=== PATIENT | male | born 1945 | race Caucasian/White ===

== ENCOUNTER → 2017-06-05 | Outpatient (CLI) | payer OTHER ==
[~2017-06-05] MED LIST: AMLODIPINE BESYL5 M1 PO; ATORVASTATIN CA40 MG PO; CARDURA1 MG PO; FLOMAX0.4 MG PO; HYDROCODON-ACE1 EAC7 PO; IBUPROFEN 200200 M1 PO; LISINOPRIL20 MG PO; LOPRESSOR25 PO; PACERONE 200 M200 M1 PO
== END ==
LOC: RAD 07:01
DX: J90 Pleural effusion, not elsewhere classified (principal); J98.11 Atelectasis; Z95.1 Presence of aortocoronary bypass graft

== ENCOUNTER → 2017-06-07 | Outpatient (CLI) | payer OTHER ==
--- NOTE | ~2017-06-07 | CNG ---
[facility] [place] [address] CYTO-NONGYN REPORT PROCEDURE Name: JONAH COTO Room #: REG ANATOLIY Downign.#: [id number] Admission: 06/07/17 Date of : 41 Discharge: Report #: [id number] Path Case #: [id number] CYTOPATHOLOGY REPORT COLLECTION DATE: 06/07/2017 RECEIVED DATE: 06/07/2017 SUBMITTING PHYS: Rose Kay, [facility] OTHER PHYS: Dr. Killian Miranda CLINICAL HISTORY: Pleural effusion. SPECIMEN(S) RECEIVED: A.Pleural fluid, Left * * * * * * * * * * * * FINAL DIAGNOSIS: Pleural fluid, left: - Few atypical cells present amongst reactive mesothelial cells. (see comment) COMMENT: Immunoperoxidase stains were performed and reveal the following results: Loco-EP4: negative Calretinin: positive The atypical cells are likely reactive mesothelial cells. (SHA:; 06/10/2017) PATHOLOGIST: Mitch Fox M.D. REPORT ELECTRONICALLY SIGNED BY: Mitch Fox M.D. DATE/TIME: 06/11/2017 09:43 * * * * * * * * * * * * GROSS PATHOLOGY: A. Pleural fluid, Left: The specimen is submitted unfixed, labeled "Jonah Coto". Received by the Cytology Department is 30 mL of red fluid. One ThinPrep slide and a formalin fixed cell block were prepared. (clt 06.07.2017) SALON PROFESSIONAL(S): JESUSITA Gomez(ASCP) INITIAL CPT CODE(S): A; 36959, 41563, 78455, 73563 Professional services performed by [facility] at [facility] [address] [place] [address] Technical services performed by [facility] at [address] [place] [address], [facility] [address] [place] [address] CYTO-NONGYN REPORT PROCEDURE Name: JONAH COTO Room #: REG [facility].#: [id number] Admission: 06/07/17 Date of : 41 Discharge: Report #: [id number] Path Case #: [id number], [place] [address]. [facility] [address] [place] [address], [address] [place] [address] PHONE: [phone] DIRECTOR: Derrell Valerio M.D. * * * END OF REPORT * * *
[2017-06-07 08:42] LABS: APTT 24.9 Seconds (24.5-32.8); PROTIME 10.3 Seconds (9.3-11.4)
[2017-06-07 10:28] LABS: COLOR RED; MANUAL DIFF YES; TOTAL VOLUME 60 mL
[2017-06-07 10:29] LABS: CLARITY TURBID
[2017-06-07 11:05] LABS: BF NUCLEATED CELLS 2048; BF RBC 95833
[2017-06-07 11:46] LABS: BF MACROPHAGE 12; BF NEUTROPHILS 6
[2017-06-08 22:07] LABS: BODY FLUID ALBUMIN 2.6 g/dL (()); BODY FLUID AMYLASE 26 U/L (()); BODY FLUID GLUCOSE 145 mg/dL (()); BODY FLUID LDH 153 IU/L (()); BODY FLUID PROTEIN 4.2 g/dL (())
== END | disposition home or self-care (01) ==
LOC: ULTRA 07:49
PROVIDERS: Nurse Practitioner
DX: J90 Pleural effusion, not elsewhere classified (principal)

== ENCOUNTER → 2017-06-19 | Outpatient (CLI) | payer OTHER | LOC: RAD 10:19 | DX: J90 Pleural effusion, not elsewhere classified (principal); J98.11 Atelectasis; Z95.1 Presence of aortocoronary bypass graft ==

== ENCOUNTER → 2017-07-10 | Outpatient (CLI) | payer OTHER | LOC: RAD 08:29 | DX: J98.11 Atelectasis (principal); J90 Pleural effusion, not elsewhere classified ==

== ENCOUNTER → 2019-01-14 | Outpatient (CLI) | payer OTHER ==
--- NOTE | 2019-01-14 12:41 | 2DMMODE ---
[facility] [place] [employer] [place] [address] 2 D/M-MODE ECHOCARDIOGRAM Name: MAURISIO COTO Room #: REG CL [facility]#: [id number] ������������� Admission: 01/14/19 ������������� Attend Phys: Blair Evans MD Discharge: ��� ������������� ��� Date of : 41 Date of Service: 01/14/19 1241 �� Report #: [id number] �������� ��������������������������������������������[id number] THIS REPORT FOR: //name// APPROVED REPORT Study performed: 01/14/2019 09:58:15 EXAM: Comprehensive 2D, Doppler, and color-flow Echocardiogram Patient Location: Out-Patient Status: routine BSA: 2.43 HR: 61 bpm BP: 126/68 mmHg Rhythm: NSR Other Information Study Quality: Adequate Indications CAD Hx: FL, CABG, HTN, HLP, DM. 2D Dimensions RVDd: 42.75 mm IVSd: 12.48 (7-11mm) LVOT Diam: 25.75 (18-24mm) LVDd: 51.96 mm PWd: 11.64 (7-11mm) Ascending Ao: 38.90 (22-36mm) LVDs: 35.63 (25-40mm) Aortic Root: 38.08 mm Volumes Left Atrial Volume (Systole) Single Plane 4CH: 82.12 mL Single Plane 2CH: 79.67 mL LA ESV Index: 36.00 mL/m2 Aortic Valve AoV Peak Marcus.: 0.96 m/s AO Peak Gr.: 3.68 mmHg LVOT Max P.85 mmHg LVOT Max V: 0.84 m/s DIMITRIOS Vmax: 4.58 cm2 Mitral Valve E/A Ratio: 1.4 MV Decel. Time: 172.11 ms [facility] [place] [address] [place] [address] 2 D/M-MODE ECHOCARDIOGRAM Name: MAURISIO COTO Room #: [facility]#: [id number] ������������� Admission: 01/14/19 ������������� Attend Phys: Blair Evans MD Discharge: ��� ������������� ��� Date of : 41 Date of Service: 01/14/19 1241 �� Report #: [id number] �������� ��������������������������������������������[id number] MV E Max Marcus.: 0.60 m/s MV A Marcus.: 0.44 m/s MV PHT: 49.91 ms IVRT: 96.89 ms Pulmonary Valve PV Peak Marcus.: 0.81 m/s PV Peak Gr.: 2.62 mmHg Pulmonary Vein P Vein S: 0.58 m/s P Vein D: 0.62 m/s P Vein S/D Ratio: 0.94 Tricuspid Valve TR Peak Marcus.: 2.40 m/s RAP Estimate: 5.00 mmHg TR Peak Gr.: 22.98 mmHg PA Pressure: 28.00 mmHg Left Ventricle The left ventricle is normal size. There is normal LV segmental wall motion. Mild concentric left ventricular hypertrophy. Left ventricular systolic function is normal. LVEF is 60%. Right Ventricle The right ventricle is normal size. The right ventricular systolic function is normal. Atria Left atrium is mildly dilated. Right atrium is mildly dilated. Aortic Valve Aortic valve is trileaflet. Mild aortic regurgitation. There is no aortic valvular stenosis. Mitral Valve The mitral valve is normal in structure. Mild mitral regurgitation. Tricuspid Valve The tricuspid valve is normal in structure. Mild tricuspid regurgitation. Estimated PAP is 28mmHg. Pulmonic Valve The pulmonary valve is normal in structure. Mild pulmonic regurgitation. [facility] [place] [address] 2 D/M-MODE ECHOCARDIOGRAM Name: MAURISIO COTO Jose Room #: REG CL [facility]#: [id number] ������������� Admission: 01/14/19 ������������� Attend Phys: Blair Evans MD Discharge: ��� ������������� ��� Date of : 41 Date of Service: 01/14/19 1241 �� Report #: [id number] �������� ��������������������������������������������[id number] [employer] Aortic root measures at the upper limits of normal. The ascending aorta is mildly dilated at 3.9cm. IVC is normal in size and collapses >50% with inspiration. Pericardium There is no pericardial effusion. <Conclusion> The left ventricle is normal size. Mild concentric left ventricular hypertrophy. Left ventricular systolic function is normal. The right ventricle is normal size. Left atrium is mildly dilated. Right atrium is mildly dilated. Mild aortic regurgitation. Mild mitral regurgitation. Mild tricuspid regurgitation. Estimated PAP is 28mmHg. ��������������������������������������������� <ELECTRONICALLY SIGNED> ���������������������������������������� By: Blair Evans MD ��������������������������������������������� 01/14/19 1241 1241 1241 Blair Evans MD /INF
== END ==
LOC: CV 10-20 12:06
DX: I08.8 Other rheumatic multiple valve diseases (principal); I11.9 Hypertensive heart disease without heart failure; I25.2 Old myocardial infarction; E11.9 Type 2 diabetes mellitus without complications; Z95.1 Presence of aortocoronary bypass graft

== ENCOUNTER 2019-07-19 01:51 | Emergency (ER) | payer OTHER ==
[~2019-07-19] VITALS: Ht 188 cm; Wt 113.4 kg
[2019-07-19] MEDS ORDERED: FUROSEMIDE 40 M40 MG PO (02:37)
[2019-07-19] MEDS ORDERED: AUGMENTIN 500-1 EACH PO (02:39)
[2019-07-19] MEDS ORDERED: INDOMETHACIN 5050 M1 PO (02:40)
[2019-07-19] MEDS ORDERED: ASA81BEC PO (02:42)
[2019-07-19] MEDS ORDERED: BACTRIM DS TAB1 EACH PO (02:42)
[2019-07-19 02:46] LABS: ABSOLUTE NEUTROPHILS 5.4 thou/uL (1.4-8.2); BASOPHILS 0.6 % (0.0-2.0); EOSINOPHILS 1.9 % (0.0-3.0); HEMATOCRIT 35.3 % (42.0-52.0); HEMOGLOBIN 11.8 gm/dL (14.0-18.0); LYMPHOCYTES 24.1 % (24.0-44.0); MCH 31.8 pg (26.0-34.0); MCHC 33.3 g/dL (28.0-37.0); MCV 95.4 fL (80.0-100.0); MONOCYTES 7.2 % (1.0-8.0); PLATELET COUNT 194 thou/uL (150-400); POLYS 66.2 % (36.0-66.0); RDW 13.2 % (10.5-14.5); WBC 8.2 thou/uL (4.0-11.0)
[2019-07-19 02:53] LABS: CALCIUM 10.3 mg/dL (8.5-10.1); CREATININE 2.2 mg/dL (0.7-1.3); MAGNESIUM 1.7 mg/dL (1.8-2.4)
[2019-07-19] MEDS ORDERED: ONDANSETRON ODT4 MG PO (04:25)
[2019-07-19 04:46] VITALS: BP 143/66
--- NOTE | 2019-07-20 14:52 | EKG ---
[facility] [employer] [place] [address] ELECTROCARDIOGRAM REPORT Name: MAURISIO COTO Room #: DEP [facility]#: [id number] Admission: 07/19/19 Attend Phys: Discharge: 07/19/19 Date of : 41 Report #: [id number] THIS REPORT FOR: //name// [facility] ED Test Date: 2019-07-19 Test Time: 02:30:51 Pat Name: MAURISIO COTO Department: Room: Gender: M Marble Cleaner: JEREMIAS : 1945 Requested By: Killian Rivera Order Number: [id number] MD: Kang Alegria Measurements Intervals [place] Rate: 77 P: 57 HI: 206 QRS: 19 QRSD: 119 T: 159 QT: 393 QTc: 445 Interpretive Statements Sinus rhythm Probable LVH with secondary repol abnrm Anterior Q waves, possibly due to LVH Compared to ECG 05/11/2017 08:02:42 Q waves now present Electronically Signed On 07-20-2019 14:51:38 [employer]ILRO[employer] PERSONNEL by Kang Alegria [email or web address] <ELECTRONICALLY SIGNED> By: Kang Alegria MD 07/20/19 1451 0230 0230 Kang Alegria MD /ZHANNA
== END 2019-07-19 04:47 | disposition home or self-care (01) ==
LOC: ER 01:51
PROVIDERS: Emergency Medicine
DX: R11.2 Nausea with vomiting, unspecified (principal); R79.0 Abnormal level of blood mineral; E11.9 Type 2 diabetes mellitus without complications; M19.90 Unspecified osteoarthritis, unspecified site

== ENCOUNTER 2019-07-29 17:23 | Inpatient (IN) | payer OTHER ==
[~2019-07-29] VITALS: Ht 188 cm; Wt 113.9 kg
--- NOTE | ~2019-07-29 | EKG ---
[facility] [address] [place] [address] ELECTROCARDIOGRAM REPORT Name: NNAMDIMAURISIO Wilson Room #: PRE M.R.#: [id number] Admission: Attend Phys: Discharge: Date of : 41 Report #: [id number] THIS REPORT FOR: cc: Johnnie Blair MD ~ THIS REPORT FOR: //name// [facility] ED Test Date: 2019-07-29 Test Time: 18:18:26 Pat Name: MAURISIO COTO Department: Room: Gender: M Personal Security Specialist: : 1945 Requested By: Killian Rivera Order Number: [id number] MD: Measurements Intervals [place] Rate: 73 P: 56 OK: 186 QRS: 7 QRSD: 114 T: 145 QT: 397 QTc: 438 Interpretive Statements Sinus rhythm LVH with IVCD and secondary repol abnrm Compared to ECG 07/19/2019 02:30:51 Intraventricular conduction delay now present Q waves no longer present [email or web address] By: 17 17 Johnnie Blair MD /EPI
--- NOTE | ~2019-07-29 | EKG ---
[facility] [place] [address] ELECTROCARDIOGRAM REPORT Name: MAURISIO COTO Room #: 407-P ADM IN M.R.#: [id number] Admission: 07/29/19 Attend Phys: Gt Andrade MD Discharge: Date of : 41 Report #: [id number] THIS REPORT FOR: cc: DC - No family physician/PCP FAM - No family physician/PCP Johnnie Blair MD ~ THIS REPORT FOR: //name// [facility] Test Date: 2019-07-31 Test Time: 06:53:29 Pat Name: MAURISIO COTO Department: Room: 407 P Gender: M Maintenance Representative: abner : 1945 Requested By: Carmela De Luna Order Number: [id number] MD: Measurements Intervals [place] Rate: 119 P: 60 IL: 177 QRS: 2 QRSD: 115 T: 157 QT: 294 QTc: 414 Interpretive Statements Sinus tachycardia Incomplete left bundle branch block ST depression, consider ischemia, lateral lds Baseline wander in lead(s) V1 Compared to ECG 07/29/2019 18:18:26 Left bundle-branch block now present ST (T wave) deviation now present Possible ischemia now present Sinus rhythm no longer present Intraventricular conduction delay no longer present Left ventricular hypertrophy no longer present Early repolarization no longer present [email or web address] By: 0653 0653 Epiphany EpiphanyMD /ZHANNA
--- NOTE | ~2019-07-29 | EKG ---
[facility] [place] [address] ELECTROCARDIOGRAM REPORT Name: MAURISIO COTO Room #: 359- ADM IN M.R.#: [id number] Admission: 07/29/19 Attend Phys: Gt Andrade MD Discharge: Date of : 41 Report #: [id number] THIS REPORT FOR: cc: DC - No family physician/PCP FAM - No family physician/PCP Johnnie Blair MD ~ THIS REPORT FOR: //name// [facility] Test Date: 2019-08-01 Test Time: 07:44:48 Pat Name: MAURISIO COTO Department: Room: 359 Gender: M Offender Job Retention Specialist: Jose DYKES : 1945 Requested By: Alvaro Carbajal Order Number: [id number] MD: Measurements Intervals [place] Rate: 73 P: 53 ND: 195 QRS: 7 QRSD: 118 T: 130 QT: 405 QTc: 447 Interpretive Statements Sinus rhythm Incomplete left bundle branch block Anterior Q waves, possibly due to ILBBB Compared to ECG 07/31/2019 06:53:29 Left bundle-branch block now present Q waves now present Sinus tachycardia no longer present [email or web address] By: 0744 3 Epiphany Epiphany, [place] /EPI
[2019-07-29 17:23] VITALS: BP 129/50
[~2019-07-29 17:23] MED LIST changes: +ASA81BEC PO; +AUGMENTIN 500-1 EACH PO; +BACTRIM DS TAB1 EACH PO; +FUROSEMIDE 40 M40 MG PO; +INDOMETHACIN 5050 M1 PO; +ONDANSETRON ODT4 MG PO
[2019-07-29 17:50] LABS: ABSOLUTE NEUTROPHILS 17.2 thou/uL (1.4-8.2); BASOPHILS 0.2 % (0.0-2.0); EOSINOPHILS 0.1 % (0.0-3.0); HEMATOCRIT 35.5 % (42.0-52.0); HEMOGLOBIN 11.8 gm/dL (14.0-18.0); LYMPHOCYTES 7.4 % (24.0-44.0); MCH 31.4 pg (26.0-34.0); MCHC 33.4 g/dL (28.0-37.0); MCV 94.2 fL (80.0-100.0); MONOCYTES 4.2 % (1.0-8.0); PLATELET COUNT 241 thou/uL (150-400); POLYS 88.1 % (36.0-66.0); RBC 3.76 mil/uL (4.50-6.00); RDW 13.2 % (10.5-14.5); WBC 19.5 thou/uL (4.0-11.0)
[2019-07-29 17:58] LABS: ANION GAP 14 mmol/L (7-16); BUN 37 mg/dL (7-18); CALCIUM 9.1 mg/dL (8.5-10.1); CHLORIDE 99 mmol/L (98-107); CO2 19 mmol/L (21-32); CREATININE 2.7 mg/dL (0.7-1.3); GLUCOSE 193 mg/dL (74-106); POTASSIUM 4.8 mmol/L (3.5-5.1); SODIUM 132 mmol/L (136-145)
[2019-07-29 18:08] LABS: ALBUMIN 3.8 g/dL (3.4-5.0); SGOT 14 U/L (15-37); SGPT 23 U/L (30-65); TOTAL BILIRUBIN 0.9 mg/dL (<0.1-1.0); TOTAL PROTEIN 7.5 g/dL (6.4-8.2); TROPONIN-I <0.06 ng/mL (<0.06)
[2019-07-29 18:47] LABS: MAGNESIUM 1.6 mg/dL (1.8-2.4)
[2019-07-29 18:55] LABS: URINE BILIRUBIN NEGATIVE (Negative); URINE BLOOD NEGATIVE (Negative); URINE CLARITY CLEAR; URINE COLOR YELLOW; URINE GLUCOSE-RANDOM* NEGATIVE (Negative); URINE KETONES NEGATIVE (Negative); URINE LEUKOCYTES-REFLEX NEGATIVE (Negative); URINE NITRITE-REFLEX NEGATIVE (Negative); URINE PROTEIN (DIPSTICK) NEGATIVE (Negative); URINE SPECIFIC GRAVITY 1.025 (1.005-1.035); URINE UROBILINOGEN 0.2 E.U./dl (0.2-1.0)
[2019-07-29] MEDS ORDERED: METFORMIN HCL500 M3 PO (19:06)
[2019-07-29 22:07] VITALS: BP 111/54
[2019-07-29 22:19] VITALS: BP 111/54
[2019-07-29 23:17] VITALS: BP 140/46
--- NOTE | 2019-07-30 02:47 | NUR ---
ASSUMED CARE OF PT FROM ED AT 2300HRS. PT IS AOX4 AND LETS NEEDS BE KNOWN. PT WAS ORIENTED TO THE UNIT AND HIS ROOM. PT IS [facility]. PT WAS ABLE TO ANSWER ALL ADMISSION RELATED QUESTIONS. PT WEARS GLASSES. PT DENIED NAUESA OR PAIN. PT WAS ABLE TO SIGN HIS OWN CONSENTS. ORDERS RECEIVED AND INITIATEED. PT WAS ABLE TO GET COMFORTABLE AND SLEEP PART OF THE SHIFT. VSS AND NO S/S OF ACUTE DISTRESS. WILL CONTINUE TO MONITOR.
[2019-07-30 04:50] VITALS: BP 121/48
[2019-07-30 06:17] LABS: HEMATOCRIT 32.4 % (42.0-52.0); MCH 32.1 pg (26.0-34.0); MCHC 33.8 g/dL (28.0-37.0); MCV 95.1 fL (80.0-100.0); RBC 3.41 mil/uL (4.50-6.00); RDW 13.3 % (10.5-14.5); WBC 12.9 thou/uL (4.0-11.0)
[2019-07-30 06:33] LABS: CREATININE 2.9 mg/dL (0.7-1.3); POTASSIUM 4.8 mmol/L (3.5-5.1)
[2019-07-30 08:14] VITALS: BP 103/44
--- NOTE | 2019-07-30 08:45 | NUR ---
Assumed patient care at 0715. Patient continues on Antibiotics for Colitis. Vital signs are stable. Blood sugar 104 at 0825; no sliding scale Insulin required. Patient requested and recieved Tylenol 650mg po at 0830 for level "three" lower back pain. Patient to be [facility] to [facility] this am. Will report to [facility] nurse.
--- NOTE | 2019-07-30 09:48 | NUR ---
ASSUMED CARE OF PT AT 0930 FROM 4W. PT IS AOX4, VSS, REPORTS BACK PAIN IS CONTROLLED WITH ACETAMINOPHEN. IV PATENT ON LEFT FA, TOLERATING CLEAR LIQUID DIET. PT IS [place] AND DOES NOT HAVE HEARING AIDS. PT ABLE TO AMBULATE WITH STAND BY ASSIST. CALL LIGHT AND PERSONAL ITEMS IN REACH. WILL CONTINUE TO MONITOR PT.
[2019-07-30 14:50] VITALS: BP 104/58
--- NOTE | 2019-07-30 18:26 | NUR ---
PT WAS NOT ABLE TO RECEIVED MARCUS CATH PER ORDER, DR NAVARRETE ORDERED STRAIGHT CATH Q 4HRS. PT WILL DRINK 64 OZ OF GARTORADE WITH MIRALAX FOR THE COLONOSCOPY IN TOMORROW. PT BLADDER SCAN SHOWED 200CC IN BLADDER, NURSE STRAIGHT CATH 200 CC OUT. PT IS TOLERATING CLEAR LIQUID DIET, NO N/V NOTED. NO PAIN AT THIS TIME. CALL LIGHT IN REACH.
[2019-07-30 21:29] VITALS: BP 137/69
[2019-07-31 06:01] LABS: ABSOLUTE NEUTROPHILS 7.1 thou/uL (1.4-8.2); BASOPHILS 0.2 % (0.0-2.0); EOSINOPHILS 0.3 % (0.0-3.0); HEMATOCRIT 30.3 % (42.0-52.0); HEMOGLOBIN 10.4 gm/dL (14.0-18.0); LYMPHOCYTES 7.4 % (24.0-44.0); MCH 32.5 pg (26.0-34.0); MCHC 34.2 g/dL (28.0-37.0); MCV 95.1 fL (80.0-100.0); MONOCYTES 5.2 % (1.0-8.0); PLATELET COUNT 189 thou/uL (150-400); POLYS 86.9 % (36.0-66.0); RBC 3.19 mil/uL (4.50-6.00); RDW 13.3 % (10.5-14.5); WBC 8.2 thou/uL (4.0-11.0)
[2019-07-31 06:19] LABS: ALBUMIN 2.9 g/dL (3.4-5.0); CALCIUM 8.3 mg/dL (8.5-10.1); CREATININE 2.3 mg/dL (0.7-1.3); MAGNESIUM 2.1 mg/dL (1.8-2.4); POTASSIUM 4.9 mmol/L (3.5-5.1); TOTAL BILIRUBIN 0.5 mg/dL (<0.1-1.0); TOTAL PROTEIN 6.3 g/dL (6.4-8.2)
--- NOTE | 2019-07-31 07:06 | NUR ---
PITCH FILLER ACTIVATED FOR CHILLS, TACHYPNEA, TACHYCARDIA. SEE RAPID RESPONSE INTERVENTION FOR DOCUMENTATION AND DETAILS. PT TX'D TO TELE.
--- NOTE | 2019-07-31 07:22 | NUR ---
Assumed pt care at 1900. Pt is A/OX4.Denied pain on assessment. Pt febrile at beginning of shift Temp 101,with chills medicated with Tylenol with relief noted down to 98.2. Pt is up with SBA/GB. Pt reluctant to complete bowel prep last night,required a lot of encouragement to do so and only made to 2/3 of it at 0230. Pt has had brown stools times two so far. NPO since 0230. Denies N/V. Pt straight cathed w/o any success d/t enlarged prostate bladder scanned and observed 136ml pt had no c/o discomfort. Pt voiding small amounts per urinal at night.At 0600 attempted to straight cath pt again w/o success and a few minutes after pt called c/o chills;afebrile at this time,but tachy oxygen applied @2L/NC sats 77% and RT called. Pt reports could be anxiety attack although has never exprienced this before. EKG ordered and obtained-Sinus Tachy; pt stabilized at this time and orders given to transfer to for telemetry monitoring. Pt is supposed to have a colonoscopy done today.
[2019-07-31 08:24] VITALS: BP 132/53
--- NOTE | 2019-07-31 10:31 | NUR ---
Received patient from , transferred to bed safely. On nothing per [place]- pt informed and aware. Vital signs stable. On telemetry- with Tachycardia noted- physician aware, thus transferred to [facility]. A+Ox4, RESIGHINI. Assisted in ADLs. With O2 at 2lpm via nasal cannula. On blood sugar monitoring- taken and recorded accordingly, with sliding scale insulin prescribed. Patient for starr insertion, as per nurse she was unable to insert starr, to try- pt with orders for straight catheter or starr catheter- able to insert starr catheter as per protocol- output measured and recorded accordingly, able to insert without difficulty. With NS at 125cc/h, infusing well at L FA. Pt was not able to tolerate bowel prep yesterday, scheduled for colonoscopy today- consent signed; as per PREFORM MACHINE OPERATOR Lauro, pt to still have colonoscopy today, to do enema as ordered- administered and pt tolerated well. Falls bundle in place. Pt fetched by GI staff, transferred to cart safely.
[2019-07-31 15:17] VITALS: BP 111/59
--- NOTE | 2019-07-31 16:21 | NUR ---
INITIAL ASSESSMENT: Received high risk nursing referral. SW reviewed chart and spoke with nursing and attending physician. Pt was admitted from home due to colitis. Pt was transferred to from [facility] following DOPE MAINTENANCE WORKER activation. Pt had colonoscopy earlier today and may need a PIPIDA scan. SW met with pt at bedside. Introduced role of SW. Pt is alert/orientated x 4. Pt reports he lives at home with his girlfriend. Prior to admission, pt was independent with ADLs. No use of DME for ambulation. Pt has stairs that go down to the basement, but he does not go down there. Pt's PCP is Dr. Killian Miranda. No hx of services or post-acute placement. Pt's plan is to return home when medically stable. Pt states he will have transportation home. No SW discharge needs identified at this time, but is available to assist should needs arise.
[2019-07-31 19:30] VITALS: BP 116/61
[2019-08-01 04:20] VITALS: BP 112/56
[2019-08-01 05:35] LABS: HEMATOCRIT 30.6 % (42.0-52.0); HEMOGLOBIN 10.2 gm/dL (14.0-18.0); MCHC 33.3 g/dL (28.0-37.0); MCV 96.2 fL (80.0-100.0); RBC 3.18 mil/uL (4.50-6.00); RDW 13.5 % (10.5-14.5); WBC 8.3 thou/uL (4.0-11.0)
--- NOTE | 2019-08-01 05:49 | NUR ---
ASSUMED PT CARE AROUND 1900. A&OX4. DENIES ANY PAIN. DENIES AND N/V. PT SLEPT MOST OF THE NIGHT. RESP EVEN AND UNLABORED. MARCUS TO DD. NO MAJOR COMPLAINTS THIS SHIFT. FALL PRECAUTIONS IN PLACE. PROGRESSING TOWARD POC GOALS. WILL CONTINUE TO MONITOR FURTHER.
[2019-08-01 05:50] LABS: CALCIUM 8.7 mg/dL (8.5-10.1); CREATININE 1.7 mg/dL (0.7-1.3); POTASSIUM 4.4 mmol/L (3.5-5.1)
[2019-08-01 07:17] VITALS: BP 119/63
--- NOTE | 2019-08-01 10:36 | P ---
[facility] [place] [address] PROCEDURE REPORT Name: MAURISIO COTO Room #: 359-P ADM IN M.R.#: [id number] Admission: 07/29/19 Attend Phys: Gt Andrade MD Discharge: Date of : 41 Report #: [id number] THIS REPORT FOR: cc: DC - No family physician/PCP DC - No family physician/PCP Juan Carlos Palmer MD ~ THIS REPORT FOR: //name// CC: DC physician/PCP Gt Crane MD DATE OF SERVICE: 07/31/2019 PROCEDURE PERFORMED: Colonoscopy with biopsies. HISTORY OF PRESENT ILLNESS: The patient is a 74-year-old male, who was admitted through the Emergency Room on 07/29/2019 with abdominal pain. On admission, his white blood cell count was 19.5. He has been on antibiotics. He underwent a CT scan of the abdomen and pelvis, which showed several small calcified gallstones within the gallbladder, nonspecific inflammatory fat stranding between the gallbladder and the hepatic flexure of the colon. The patient states his pain has been periumbilical, low, but somewhat in the right upper quadrant as well. He underwent an ultrasound of the abdomen on 07/29/2019 showed gallbladder sludge, no definite ultrasound findings to suggest cholecystitis. No gallstones, no ductal dilation. The patient denies any blood in the stools or diarrhea recently. He has been febrile as of yesterday. He states his last colonoscopy was approximately 25 years ago. DESCRIPTION OF PROCEDURE: The risks and benefits of the procedure were explained to the patient, those risks including but not limited to bleeding, perforation and the risk of sedation. He understood these risks and gave informed consent. Sedation was given using propofol per anesthesia. Next, a digital rectal exam was initially performed, which showed a large prostate, otherwise normal. Next, using a standard Olympus colonoscope, the scope was placed in the patient's anus and advanced under direct vision to the cecum. The overall prep was good. The cecum and ileocecal valve were normal in appearance. The ascending, transverse, descending and sigmoid colon were normal. I spent a fair amount of time going back and forth near the hepatic flexure, there was no abnormality noted, no colitis, no polyps, no inflammation was noted. In the distal sigmoid colon, a single 4 mm sessile polyp was noted. This was removed with cold forceps. The rectal mucosa was normal. On retroflexion, small nonbleeding internal hemorrhoids were noted. The scope was then withdrawn and the procedure terminated. The patient tolerated the procedure well. IMPRESSION: [address] [address] PROCEDURE REPORT Name: MAURISIO COTO Jose Room #: 359-P [facility] IN ..#: [id number] Admission: 07/29/19 Attend Phys: Gt Andrade MD Discharge: Date of : 41 Report #: [id number] 1. No abnormality noted at the hepatic flexure area that was suggested on CT scan. 2. Small sigmoid colon polyp. 3. Small internal hemorrhoids. 4. Otherwise, normal colonoscopy. RECOMMENDATIONS: 1. Await biopsy results. 2. Continue IV antibiotics. 3. Consider gallbladder as a potential etiology, may need a surgery consult for further evaluation. Also, consider PIPIDA scan at this point. Thank you for allowing me to participate in his care. <ELECTRONICALLY SIGNED> By: Juan Carlos Palmer MD 08/01/19 1036 1134 1411 Juan Carlos Palmer MD /nt
[2019-08-01 15:30] VITALS: BP 128/68
[2019-08-01 19:39] VITALS: BP 126/64
--- NOTE | 2019-08-01 19:45 | NUR ---
Assumed pt care this am, VS stable. No signs or verbalizations of distress have been note. Pt took a complete bath on this own. Fall precautions in place. Progressin well towards goals, PIPIDA scan scheduled on 08/03, to be NPO the mid night before the procedure no narcotics or opiods 12 hours prior procedure. POC followed , endorsed to the night nurse.
[2019-08-02 03:17] VITALS: BP 147/72
[2019-08-02 07:33] VITALS: BP 162/89
[2019-08-02] MEDS ORDERED: METOPROLOL SUCC25 M1 PO (08:49)
[2019-08-02] MEDS ORDERED: FLAGYL500 M1 PO (09:14)
[2019-08-02] MEDS ORDERED: KEFLEX500 M2 PO (09:14)
[2019-08-02] MEDS ORDERED: NORVASC5 M1 PO (09:14)
--- NOTE | 2019-08-02 10:36 | NUR ---
Assumed patient care at 0700. a/o x4. denies pain , no n/v. void after starr out. will dc to home soon.
[2019-08-02] MEDS ORDERED: FLOMAX0.4 MG PO (10:39)
[2019-08-02 11:21] VITALS: BP 162/89
--- NOTE | 2019-08-04 10:07 | PATH ---
[facility] [place] [address] PATHOLOGY RPT PROCEDURE Name: JONAH COTO Room #: 359-P DIS IN M.R.#: [id number] Admission: 07/29/19 Date of : 41 Discharge: 08/02/19 Report #: [id number] Path Case #: [id number] [facility] Accession Number: [id number] . 01 Material submitted: . colon - POLYP AT SIGMOID COLON. Modifiers: sigmoid . 01 Clinical history: . Pre-op diagnosis: Abdominal pain, abnormal CT Post-op diagnosis: Colon polyp . 02 Diagnosis: Colon, sigmoid, biopsy: - Adenomatous polyp, one. - Hyperplastic colonic mucosa, two fragments. . (SKM:dmitri; 08/03/2019) S 08/03/2019 1144 Local . 02 Electronically signed: . Piotr Waddell MD, Pathologist NPI- [id number] . 01 Gross description: . The specimen is received in formalin, labeled "Jonah Coto, polyp at sigmoid". Received are two segments of pale amaya soft tissue ranging in size from 0.1 to 0.3 cm in maximum dimensions. The specimen is submitted entirely in cassette A1. (CAA; 07/31/2019) QAC/QAC 07/31/2019 1743 Local . 02 Pathologist provided ICD-10: D12.5 . 02 CPT . 686473 Specimen Comment: A courtesy copy of this report has been sent to [phone], [facility]56 Specimen Comment: [id number] Specimen Comment: Report sent to and Specimen Comment: A duplicate report has been generated due to demographic updates. Performed at: [address] [id number] MD Spike Camacho MD Phone: [phone] Performed at: [address] [address] PATHOLOGY RPT PROCEDURE Name: JONAH COTO Room #: 359-P [facility] IN M.R.#: [id number] Admission: 07/29/19 Date of : 41 Discharge: 08/02/19 Report #: [id number] Path Case #: [id number] [facility] [id number] MD Derrell Valerio MD Phone: [phone]
== END 2019-08-02 12:24 | disposition home or self-care (01) | DRG 391 ==
LOC: ER 17:23 → EROBS 22:00 → 4N 22:00 → 3W 22:00 → 4W 22:48 → 4N 07-30 09:42 → 3W 07-31 08:40
PROVIDERS: Emergency Medicine; Internal Medicine; Nurse Practitioner; Nurse Practitioner Family; Student in an Organized Health Care Education/Training Program; ADMIT Hospitalist
PROC: 0DBN8ZX Excision of Sigmoid Colon, Via Natural or Artificial Opening Endoscopic, Diagnostic (ICD-10-PCS; principal; 2019-07-29)
DX: K52.9 Noninfective gastroenteritis and colitis, unspecified (principal); N17.0 Acute kidney failure with tubular necrosis; K81.0 Acute cholecystitis; N17.8 Other acute kidney failure; N40.0 Benign prostatic hyperplasia without lower urinary tract symptoms; M19.90 Unspecified osteoarthritis, unspecified site; K64.8 Other hemorrhoids; I25.10 Atherosclerotic heart disease of native coronary artery without angina pectoris; E78.5 Hyperlipidemia, unspecified; E11.22 Type 2 diabetes mellitus with diabetic chronic kidney disease; I12.9 Hypertensive chronic kidney disease with stage 1 through stage 4 chronic kidney disease, or unspecified chronic kidney disease; N18.9 Chronic kidney disease, unspecified; E86.0 Dehydration; K63.5 Polyp of colon; K82.8 Other specified diseases of gallbladder; R63.4 Abnormal weight loss; R33.9 Retention of urine, unspecified; G47.00 Insomnia, unspecified; I25.2 Old myocardial infarction; Z95.1 Presence of aortocoronary bypass graft; Z82.49 Family history of ischemic heart disease and other diseases of the circulatory system; Z68.32 Body mass index [BMI] 32.0-32.9, adult; Z79.899 Other long term (current) drug therapy; Z79.2 Long term (current) use of antibiotics; Z79.82 Long term (current) use of aspirin; Z79.84 Long term (current) use of oral hypoglycemic drugs
CPT/HCPCS: 10040; 10080; 10091; 62110; 62900; 70005

== ENCOUNTER → 2019-08-07 | Outpatient (CLI) | payer OTHER ==
[~2019-08-07] MED LIST changes: +FLAGYL500 M1 PO; +HUMALOG100 UNIT/1 SUBQ; +KEFLEX500 M2 PO; +LANTUS SUBQ; +METFORMIN HCL500 M3 PO; +METOPROLOL SUCC25 M1 PO; +NORVASC5 M1 PO; +PEPCID20 MG PO
== END ==
LOC: SJCVC 13:28
DX: I45.10 Unspecified right bundle-branch block (principal); R94.31 Abnormal electrocardiogram [ECG] [EKG]; I25.810 Atherosclerosis of coronary artery bypass graft(s) without angina pectoris; I12.9 Hypertensive chronic kidney disease with stage 1 through stage 4 chronic kidney disease, or unspecified chronic kidney disease; E11.22 Type 2 diabetes mellitus with diabetic chronic kidney disease; N18.9 Chronic kidney disease, unspecified; E78.00 Pure hypercholesterolemia, unspecified; R60.9 Edema, unspecified; E78.5 Hyperlipidemia, unspecified; Z95.1 Presence of aortocoronary bypass graft; Z79.899 Other long term (current) drug therapy

== ENCOUNTER → 2019-09-07 | Outpatient (CLI) | payer OTHER | LOC: SJCVC 09:00 | DX: I10 Essential (primary) hypertension (principal); I25.10 Atherosclerotic heart disease of native coronary artery without angina pectoris; E78.00 Pure hypercholesterolemia, unspecified; E11.9 Type 2 diabetes mellitus without complications; Z79.82 Long term (current) use of aspirin ==

== ENCOUNTER 2019-09-22 17:37 | Inpatient (IN) | payer OTHER ==
[~2019-09-22] VITALS: Ht 188 cm; Wt 113.4 kg
[2019-09-22 17:37] VITALS: BP 148/57
[~2019-09-22 17:37] MED LIST changes: -HUMALOG100 UNIT/1 SUBQ; -LANTUS SUBQ; -PEPCID20 MG PO
[2019-09-22 18:17] LABS: BASOPHILS 0.4 % (0.0-2.0); HEMATOCRIT 40.6 % (42.0-52.0); LYMPHOCYTES 6.4 % (24.0-44.0); MCH 32.5 pg (26.0-34.0); MCHC 34.4 g/dL (28.0-37.0); MCV 94.4 fL (80.0-100.0); MONOCYTES 7.2 % (1.0-8.0); PLATELET COUNT 116 thou/uL (150-400); RDW 14.3 % (10.5-14.5); WBC 11.7 thou/uL (4.0-11.0)
[2019-09-22 18:21] LABS: ANION GAP 11 mmol/L (7-16); BUN 27 mg/dL (7-18); CHLORIDE 99 mmol/L (98-107); CO2 23 mmol/L (21-32); CREATININE 1.7 mg/dL (0.7-1.3); GLUCOSE 212 mg/dL (74-106); POTASSIUM 3.6 mmol/L (3.5-5.1); SODIUM 133 mmol/L (136-145)
[2019-09-22 18:30] LABS: LIPASE 71 U/L (73-393); SGOT 31 U/L (15-37); SGPT 29 U/L (30-65); TOTAL BILIRUBIN 1.3 mg/dL (<0.1-1.0); TOTAL PROTEIN 6.8 g/dL (6.4-8.2); TROPONIN-I <0.06 ng/mL (<0.06)
[2019-09-22 18:33] LABS: URINE BILIRUBIN NEGATIVE (Negative); URINE BLOOD 2+ (Negative); URINE CLARITY CLOUDY; URINE COLOR YELLOW; URINE GLUCOSE-RANDOM* NEGATIVE (Negative); URINE KETONES NEGATIVE (Negative); URINE LEUKOCYTES-REFLEX NEGATIVE (Negative); URINE NITRITE-REFLEX NEGATIVE (Negative); URINE PROTEIN (DIPSTICK) 2+ (Negative); URINE SPECIFIC GRAVITY >= 1.030 (1.005-1.035); URINE UROBILINOGEN 0.2 E.U./dl (0.2-1.0)
[2019-09-22 18:56] LABS: MUCUS 4-6 Moderate strn/LPF (None Seen); SQUAMOUS 0-3 Few /LPF (0-3)
[2019-09-22 18:58] LABS: BACTERIA-REFLEX 1-9 Few /HPF (None Seen); COARSE GRANULAR CASTS 0-3 Few /LPF (None Seen); URINE RBC 0-2 Rare /HPF (0-2); URINE WBC-REFLEX 0-5 Rare /HPF (0-5)
[2019-09-22 18:59] LABS: AMORPHOUS URATES Few /LPF (None Seen)
[2019-09-22 20:54] VITALS: BP 149/71
[2019-09-22 21:45] VITALS: BP 145/66
[2019-09-23 03:58] VITALS: BP 143/66
--- NOTE | 2019-09-23 06:21 | NUR ---
PT WAS ADMITTED TO THE UNIT FROM THE ER IN A STABLE CONDITION.PT DENIED PAIN SO FAR.ADMISSION HX,EDUCATION AND ASSESSMENT COMPLETED.PT UP ADLIB IN HIS ROOM.PT HAS BEEN NPO SINCE DC.PT HAS A TEMP OF 101.1 THIS AM,SERVICE DESK SPECIALIST ON DUTY NOTIFIED ORDER NOTED FOR TYLENOL SUPP,ORDER CARRIED OUT.PT RESTING ON HIS BED AT THIS TIME.IVF AND IV ABX ADMINISTERED ORDERED.CALL LIGHT WITHIN REACH.
[2019-09-23 06:29] LABS: HEMATOCRIT 39.4 % (42.0-52.0); HEMOGLOBIN 13.3 gm/dL (14.0-18.0); MCH 31.8 pg (26.0-34.0); MCHC 33.7 g/dL (28.0-37.0); MCV 94.4 fL (80.0-100.0); RBC 4.17 mil/uL (4.50-6.00); RDW 14.5 % (10.5-14.5); WBC 11.1 thou/uL (4.0-11.0)
[2019-09-23 06:41] LABS: ALBUMIN 2.5 g/dL (3.4-5.0); CALCIUM 8.6 mg/dL (8.5-10.1); CREATININE 1.7 mg/dL (0.7-1.3); POTASSIUM 4.1 mmol/L (3.5-5.1); TOTAL BILIRUBIN 1.4 mg/dL (<0.1-1.0); TOTAL PROTEIN 6.3 g/dL (6.4-8.2)
[2019-09-23 06:53] LABS: INR 1.1; PROTIME 11.1 Seconds (9.3-11.4)
[2019-09-23 08:32] VITALS: BP 136/75
--- NOTE | 2019-09-23 09:39 | EKG ---
[facility] [place] [address] ELECTROCARDIOGRAM REPORT Name: MAURISIO COTO Room #: 442-P ADM IN M.R.#: [id number] Admission: 09/22/19 Attend Phys: Abel Luo MD Discharge: Date of : 41 Report #: [id number] THIS REPORT FOR: cc: DC - No family physician/PCP FAM - No family physician/PCP Alvaro Carbajal MD [facility] ~ THIS REPORT FOR: //name// [facility] ED Test Date: 2019-09-22 Test Time: 17:53:18 Pat Name: MAURISIO COTO Department: Room: 442 Gender: M Marketing Business Analyst: RANDY : 1945 Requested By: Varsha Griffin Order Number: [id number] MD: Alvaro Carbajal Measurements Intervals [place] Rate: 101 P: 7 MA: 173 QRS: 1 QRSD: 112 T: 140 QT: 353 QTc: 458 Interpretive Statements Sinus tachycardia LVH with IVCD and secondary repol abnrm Compared to ECG 08/01/2019 07:44:48 Intraventricular conduction delay now present Left ventricular hypertrophy now present No significant change was found Electronically Signed On 09-23-2019 9:38:34 CDT by Alvaro Carbajal [email or web address] <ELECTRONICALLY SIGNED> By: Alvaro Carbajal MD, FACC 09/23/19 0938 1753 1753 Alvaro Carbajal MD, FACC /EPI
--- NOTE | 2019-09-23 09:54 | NUR ---
Assess due to high nutrition screening risk. Admit with cholelithiasis/cholecystitis. Appetite down but no significant wt loss from 250 lb over past 2 months. NPO status, surgery consulted. Low nutrition risk
--- NOTE | 2019-09-23 13:38 | NUR ---
PT ADMITTED RELATED TO CHOLELITHIASIS,CHOLECYSTITIS. CM REVIEWED CHART AND SPOKE WITH CARE TEAM. PT WAS HERE IN JULY AND WAS TREATED CONSERTIVELY WITH NO SURGICAL INTERVENTION. PT RETURNED HOME WITH NO NEEDS AND WAS TO FOLLOW UP ON AN OP BASIS. CHART INDICATED THAT PT RESIDES WITH SIG OTHER WITH NO STEPS TO ENTER. 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 CM CALLED PT'S ROOM NUMEROUS TIME THIS DAY WITH NO RESPONSE. CM CALLED NURSE AND HE INIDCATED HE WOULD TRANSFER CM TO ROOM AND FOLLOW UP IN THERE STILL NO RESPONSE. AWAITING DETERMINITION IF PT WILL HAVE SURGERY OR NOT. CM TO FOLLOW INIDCATED WITH DC PLANNING.
[2019-09-23 16:08] VITALS: BP 144/76
--- NOTE | 2019-09-23 17:38 | NUR ---
ASSUMED CARE AT 0700. ALERT AND ORIENTED. NPO SINCE MIDNIGHT FOR POSSIBLE SURGERY. NO C/O PAIN. UAL. VOIDING. IVF INFUSING WITHOUT COMPLICATIONS. FEBRILE THIS AM TO 101. DECISION NOT TO GO TO SURGERY AT THIS TIME. PT AGREEABLE WITH POC. WILL RESUME REGULAR DIET AND CONTINUE TO MONITOR
[2019-09-23 19:00] VITALS: BP 143/77
[2019-09-24 03:35] VITALS: BP 127/71
--- NOTE | 2019-09-24 06:41 | NUR ---
ASSUMED PT CARE AT 1900. PT SEEMED A LITTLE OUT OF IT LAST NIGHT BUT SEEMS MUCH BETTER THIS MORNING. ANTIBIOTICS GIVEN PER ORDER. SLEEPING WELL, NO COMPLAINTS OVERNIGHT. HOPING TO GO HOME TODAY.
[2019-09-24 07:40] VITALS: BP 140/75
[2019-09-24 08:18] LABS: HEMATOCRIT 37.9 % (42.0-52.0); HEMOGLOBIN 12.7 gm/dL (14.0-18.0); MCH 31.8 pg (26.0-34.0); MCHC 33.5 g/dL (28.0-37.0); MCV 95.1 fL (80.0-100.0); RBC 3.99 mil/uL (4.50-6.00); RDW 14.4 % (10.5-14.5); WBC 11.9 thou/uL (4.0-11.0)
[2019-09-24 08:38] LABS: ALBUMIN 2.4 g/dL (3.4-5.0); CALCIUM 8.7 mg/dL (8.5-10.1); CREATININE 1.6 mg/dL (0.7-1.3); POTASSIUM 3.4 mmol/L (3.5-5.1); TOTAL BILIRUBIN 1.1 mg/dL (<0.1-1.0); TOTAL PROTEIN 6.1 g/dL (6.4-8.2)
--- NOTE | 2019-09-24 10:51 | NUR ---
Assumed pt care at 7am.Pt in bed alert and oriented x4.Assessment completed. vss.Pt tolerated meds and breakfast.Pt wanted to dc home today after seen by Dr Crane.No verbal c/o.Piv and antibiotic infusing as ordered.Will continue to monitor.
[2019-09-24 16:19] VITALS: BP 139/73
[2019-09-24 19:02] VITALS: BP 135/63
[2019-09-25 03:48] VITALS: BP 134/72
--- NOTE | 2019-09-25 04:40 | NUR ---
ASSUMED PT CARE AT 1900. PT SLOW TO RESPOND, SOME POSSIBLE DEMENTIA? A&OX4 BUT SOME CONFUSION NOTICED. INSULIN GIVEN TONIGHT. FEVER MANAGED WITH PO MEDS. USING THE URINAL AT THE BEDSIDE BUT ALSO GOT UP TO THE TOILET. SLEPT WELL THIS EVENING. ANTICIPATING DISCHARGE TODAY.
[2019-09-25 06:37] LABS: ABSOLUTE NEUTROPHILS 7.9 thou/uL (1.4-8.2); BASOPHILS 0.4 % (0.0-2.0); HEMOGLOBIN 12.9 gm/dL (14.0-18.0); LYMPHOCYTES 14.7 % (24.0-44.0); MCH 32.7 pg (26.0-34.0); MCHC 34.1 g/dL (28.0-37.0); MONOCYTES 11.3 % (1.0-8.0); PLATELET COUNT 128 thou/uL (150-400); POLYS 72.6 % (36.0-66.0); RBC 3.96 mil/uL (4.50-6.00); RDW 14.8 % (10.5-14.5); WBC 10.8 thou/uL (4.0-11.0)
[2019-09-25 06:53] LABS: ALBUMIN 2.3 g/dL (3.4-5.0); CALCIUM 8.3 mg/dL (8.5-10.1); CREATININE 1.5 mg/dL (0.7-1.3); PHOSPHORUS 2.4 mg/dL (2.5-4.9); TOTAL BILIRUBIN 1.3 mg/dL (<0.1-1.0)
[2019-09-25 07:56] VITALS: BP 145/694
[2019-09-25] MEDS ORDERED: PEPCID20 MG PO ×2 (15:58)
[2019-09-25] MEDS ORDERED: LANTUS SUBQ ×2 (15:59)
[2019-09-25] MEDS ORDERED: HUMALOG100 UNIT/1 SUBQ ×2 (16:00)
[2019-09-25 16:04] VITALS: BP 183/79
[2019-09-25 16:11] VITALS: BP 183/79
[2019-09-25 16:27] VITALS: BP 183/79
[2019-09-25 16:35] VITALS: BP 183/79
--- NOTE | 2019-09-25 16:36 | NUR ---
Patient to nc home with HH care. Called patient in room multiple times no answer and ne cell phone listed. Sp with RN. Referral to [facility] who accepts insurance.
--- NOTE | 2019-09-25 18:24 | NUR ---
Assumed pt care at 7am.Pt in and out of bed independently to bathroom. Assessment completed.vss.Pt tolerated med and diet.Dr Crane here wanted to dc pt home after 1900 dose of zosyn today.But later change her mind and instructed this rn to give zosyn at 1500 so pt can dc home at 7pm.Around 1630,pt pulled piv byself and stated that he doesn't need additional iv med but po.Base on the rn radiation,pt was confused and has sundowning.Dr Crane notified and she said not to restart piv but sent pt home with po antibiotic and home health.Dc summary compile and reviewed with pt.RX sent to pharmacy. Dc summary copy given.At 1730,pt dc home with in wc accompanied by commercial leasing manager.
== END 2019-09-25 17:30 | disposition home health service (06) | DRG 444 ==
LOC: ER 17:37 → 4S 20:28 → EROBS 20:28 → 4S 21:34
PROVIDERS: Internal Medicine; Nurse Practitioner Family; Physician Assistant; ADMIT Internal Medicine
DX: K80.10 Calculus of gallbladder with chronic cholecystitis without obstruction (principal); E43 Unspecified severe protein-calorie malnutrition; R65.11 Systemic inflammatory response syndrome (SIRS) of non-infectious origin with acute organ dysfunction; N17.9 Acute kidney failure, unspecified; N40.0 Benign prostatic hyperplasia without lower urinary tract symptoms; M19.90 Unspecified osteoarthritis, unspecified site; I25.10 Atherosclerotic heart disease of native coronary artery without angina pectoris; K64.8 Other hemorrhoids; K82.8 Other specified diseases of gallbladder; K76.0 Fatty (change of) liver, not elsewhere classified; R74.0 Nonspecific elevation of levels of transaminase and lactic acid dehydrogenase [LDH]; N18.3 Chronic kidney disease, stage 3 (moderate); G47.00 Insomnia, unspecified; E11.22 Type 2 diabetes mellitus with diabetic chronic kidney disease; I12.9 Hypertensive chronic kidney disease with stage 1 through stage 4 chronic kidney disease, or unspecified chronic kidney disease; I25.2 Old myocardial infarction; Z95.1 Presence of aortocoronary bypass graft; Z79.899 Other long term (current) drug therapy; Z79.2 Long term (current) use of antibiotics; Z90.89 Acquired absence of other organs; Z68.32 Body mass index [BMI] 32.0-32.9, adult; Z79.82 Long term (current) use of aspirin; Z98.1 Arthrodesis status; E78.5 Hyperlipidemia, unspecified; Z86.010 Personal history of colon polyps
CPT/HCPCS: 10100; 10195

== ENCOUNTER 2019-10-18 20:40 | Emergency (ER) | payer OTHER ==
[~2019-10-18] VITALS: Ht 188 cm; Wt 114.3 kg
[~2019-10-18 20:40] MED LIST changes: +HUMALOG100 UNIT/1 SUBQ; +LANTUS SUBQ; +PEPCID20 MG PO
[2019-10-18] MEDS ORDERED: ASA81BEC PO (21:24)
[2019-10-18] MEDS ORDERED: METOPROLOL SUCC50 MG PO (21:26)
[2019-10-18] MEDS ORDERED: INDOMETHACIN 5050 M1 PO (21:27)
[2019-10-18] MEDS ORDERED: FLOMAX0.4 MG PO (21:28)
[2019-10-18] MEDS ORDERED: FAMOTIDINE20 MG PO (21:28)
[2019-10-18] MEDS ORDERED: LIPITOR40 MG PO (21:29)
[2019-10-18] MEDS ORDERED: NORVASC5 M1 PO (21:29)
[2019-10-18 21:30] LABS: URINE BILIRUBIN 1+ (Negative); URINE BLOOD NEGATIVE (Negative); URINE CLARITY CLEAR; URINE COLOR YELLOW; URINE GLUCOSE-RANDOM* NEGATIVE (Negative); URINE KETONES NEGATIVE (Negative); URINE LEUKOCYTES-REFLEX NEGATIVE (Negative); URINE NITRITE-REFLEX NEGATIVE (Negative); URINE PROTEIN (DIPSTICK) NEGATIVE (Negative)
[2019-10-18] MEDS ORDERED: CEYLON CINNAMON PO (21:30)
[2019-10-18 21:31] LABS: ICTOTEST (BILI CONFIRMATORY) Positive (Negative)
[2019-10-18 21:32] LABS: ABSOLUTE NEUTROPHILS 7.6 thou/uL (1.4-8.2); BASOPHILS 0.4 % (0.0-2.0); EOSINOPHILS 0.6 % (0.0-3.0); HEMATOCRIT 37.2 % (42.0-52.0); HEMOGLOBIN 12.6 gm/dL (14.0-18.0); LYMPHOCYTES 8.3 % (24.0-44.0); MCH 31.1 pg (26.0-34.0); MCHC 33.8 g/dL (28.0-37.0); MCV 92.3 fL (80.0-100.0); MONOCYTES 6.3 % (1.0-8.0); PLATELET COUNT 154 thou/uL (150-400); POLYS 84.4 % (36.0-66.0); RBC 4.03 mil/uL (4.50-6.00); RDW 13.7 % (10.5-14.5)
[2019-10-18 21:35] LABS: CALCIUM 9.4 mg/dL (8.5-10.1); CREATININE 1.4 mg/dL (0.7-1.3)
[2019-10-18 21:41] LABS: ALBUMIN 3.5 g/dL (3.4-5.0); TOTAL BILIRUBIN 1.7 mg/dL (<0.1-1.0); TOTAL PROTEIN 7.6 g/dL (6.4-8.2)
[2019-10-18] MEDS ORDERED: AUGMENTIN 500-1 EACH PO (22:53)
[2019-10-19] MEDS ORDERED: AUGMENTIN 500-1 EACH PO (00:44)
[2019-10-19 00:57] VITALS: BP 137/60
== END 2019-10-19 01:40 | disposition home or self-care (01) ==
LOC: ER 20:40
PROVIDERS: Emergency Medicine
DX: R50.9 Fever, unspecified (principal); I10 Essential (primary) hypertension; E11.9 Type 2 diabetes mellitus without complications; E78.5 Hyperlipidemia, unspecified; M19.90 Unspecified osteoarthritis, unspecified site; Z79.4 Long term (current) use of insulin; Z95.5 Presence of coronary angioplasty implant and graft; Z20.828 Contact with and (suspected) exposure to other viral communicable diseases

== ENCOUNTER 2019-10-19 11:20 | Inpatient (IN) | payer OTHER ==
[~2019-10-19] VITALS: Ht 188 cm; Wt 113.4 kg
[~2019-10-19 11:20] MED LIST changes: +CEYLON CINNAMON PO; +FAMOTIDINE20 MG PO; +LIPITOR40 MG PO; +METOPROLOL SUCC50 MG PO
[2019-10-19 11:23] VITALS: BP 160/57
[2019-10-19 11:55] LABS: ABSOLUTE NEUTROPHILS 9.4 thou/uL (1.4-8.2); BASOPHILS 0.2 % (0.0-2.0); EOSINOPHILS 0.6 % (0.0-3.0); HEMATOCRIT 36.2 % (42.0-52.0); HEMOGLOBIN 12.2 gm/dL (14.0-18.0); LYMPHOCYTES 8.9 % (24.0-44.0); MCHC 33.7 g/dL (28.0-37.0); MCV 91.9 fL (80.0-100.0); MONOCYTES 7.1 % (1.0-8.0); PLATELET COUNT 147 thou/uL (150-400); POLYS 83.2 % (36.0-66.0); RBC 3.93 mil/uL (4.50-6.00); RDW 13.7 % (10.5-14.5); WBC 11.3 thou/uL (4.0-11.0)
[2019-10-19 12:06] LABS: CALCIUM 9.2 mg/dL (8.5-10.1); CREATININE 1.4 mg/dL (0.7-1.3); POTASSIUM 3.8 mmol/L (3.5-5.1)
[2019-10-19 12:12] LABS: ALBUMIN 3.2 g/dL (3.4-5.0); MAGNESIUM 1.7 mg/dL (1.8-2.4); TOTAL BILIRUBIN 1.6 mg/dL (<0.1-1.0); TOTAL PROTEIN 7.4 g/dL (6.4-8.2)
[2019-10-19 12:53] LABS: URINE BILIRUBIN NEGATIVE (Negative); URINE BLOOD TRACE (Negative); URINE CLARITY CLEAR; URINE COLOR YELLOW; URINE GLUCOSE-RANDOM* 2+ (Negative); URINE KETONES NEGATIVE (Negative); URINE LEUKOCYTES-REFLEX NEGATIVE (Negative); URINE NITRITE-REFLEX NEGATIVE (Negative); URINE PROTEIN (DIPSTICK) NEGATIVE (Negative); URINE SPECIFIC GRAVITY 1.015 (1.005-1.035)
[2019-10-19 14:28] VITALS: BP 126/59
[2019-10-19 15:06] VITALS: BP 126/59
[2019-10-19 15:31] VITALS: BP 130/80
--- NOTE | 2019-10-19 19:43 | NUR ---
PT CARE ASSUMED AT 1530 FROM ER. REPORT RECEIVED FROM KHADAR. PT IS UP AT [place] IN THE ROOM. IV IS PATENT WITH NO REDNESS OR EDEMA. FLUIDS INFUSING. BILATER LEG EDEMA +1 THAT IS NOT NEW. CLEAR LIQUIDS. CALL LIGHT IN REACH. ACHS WITH COVERAGE NEEDED. NPO AFTER MIDNIGHT FOR PENDIG SURGERY TO HAVE HIS GALL BLADDER REMOVED. WILL CONTINUE TO MONITOR.
[2019-10-19 20:18] VITALS: BP 141/66
[2019-10-19 23:16] VITALS: BP 136/68
--- NOTE | 2019-10-20 04:04 | NUR ---
UPON INITIAL ASSESSMENT PT WAS ALERT AND ORIENTED X4 AND PLEASANT. PT WAS TRANSFERRED FROM THE 4TH FLOOR. PT WAS ON ROOM AIR, NO COMPLAINTS OF PAIN THIS SHIFT. PATIENT HAS BEEN URINATING FREQUENTLY, AND NO APPARENT SIGNS OF DISTRESS FOR THIS INDIVIDUAL. HOWEVER, PT DID RUN A TEMP GREATER THAN 100 X1 THIS SHIFT. UTILIZING THE FAN AND REMOVAL OF UNNECESSARY SHEETS, PATIENT WAS ABLE TO BE BROUGHT BACK TO 99 DEGREES AND HAS NO CONCERNS AT THIS TIME. ABX WERE ADMINISTERED ORDERED, COVID SWAB WAS PERFORMED AGAIN, PATIENT EDUCATION WAS PROVIDED. SURGICAL TEAM DR. ALFARO WAS CONSULTED REGARDING THE COVID R/O STATUS AND MOVING FORTH WITH THE SURGERY. PER MD, THE TEAM WILL DISCUSS FURTHER PLANS OF SURGERY AFTER COVID R/O RESULTS POPULATE AND CARE OF THE PT CAN ADVANCE FROM THERE FORTH. ADDITIONALLY PT STATED THAT DNR STATUS WILL NO LONGER BE PURSUED AFTER LONG THOUGHT, AND THAT THERE WERE STILL THINGS THE PT NEEDED TO COMPLETE BEFORE CHOSING THAT ROUTE.
[2019-10-20 05:27] LABS: ABSOLUTE NEUTROPHILS 5.3 thou/uL (1.4-8.2); BASOPHILS 0.2 % (0.0-2.0); EOSINOPHILS 3.4 % (0.0-3.0); HEMATOCRIT 36.3 % (42.0-52.0); HEMOGLOBIN 12.3 gm/dL (14.0-18.0); LYMPHOCYTES 18.8 % (24.0-44.0); MCH 31.4 pg (26.0-34.0); MCHC 33.9 g/dL (28.0-37.0); MCV 92.6 fL (80.0-100.0); MONOCYTES 8.7 % (1.0-8.0); PLATELET COUNT 132 thou/uL (150-400); POLYS 68.9 % (36.0-66.0); RBC 3.92 mil/uL (4.50-6.00); RDW 13.8 % (10.5-14.5); WBC 7.7 thou/uL (4.0-11.0)
[2019-10-20 05:33] LABS: CALCIUM 8.5 mg/dL (8.5-10.1); CREATININE 1.3 mg/dL (0.7-1.3); PHOSPHORUS 2.9 mg/dL (2.5-4.9); TOTAL BILIRUBIN 1.6 mg/dL (<0.1-1.0); TOTAL PROTEIN 6.4 g/dL (6.4-8.2)
[2019-10-20 07:49] VITALS: BP 148/73
--- NOTE | 2019-10-20 13:00 | NUR ---
INITIAL ASSESSMENT: Received consult. BEATRIZ reviewed chart and spoke with nursing and attending physician. Pt was admitted from home. Pt is currently in Enhanced Isolation to r/o COVID-19. Pt is NPO for possible surgery later today or tomorrow. BEATRIZ spoke with pt via phone. Introduced role of SW. Pt is alert/orientated x 4. Pt reports he lives at home with his girlfriend. Prior to admission, pt was independent with ADLs. Pt has a cane and walker at home, but does not use them. Pt is currently on service with [facility]. No hx of post-acute placement. Pt's PCP is Dr. Killian Miranda. Plan is for pt to discharge home and resume services upon discharge. certified financial planner to fax HH referral to [facility]. BEATRIZ notified [facility] liaison. BEATRIZ is following to assist as needed with discharge planning.
--- NOTE | 2019-10-20 13:51 | NUR ---
PT ON SERVICE WITH [facility] PRIOR TO ADM FAXED REFERRAL FOR RESUMPTION OF CARE SPOKE WITH SHAYY IN INTAKE THEY WILL RESUME CARE AT DC. DP TO FOLLOW.
[2019-10-20 13:53] VITALS: BP 148/73
--- NOTE | 2019-10-20 18:27 | NUR ---
NURSE RECEIVED REPORT FROM 3W NURSE HERNANDEZ. PT WAS TRANFERRED BY BED. VSS AND REPORTS PAIN IS 0/10 AT THIS TIME. NURSE EDUCATED PT TO USE CALL LIGHT FOR ASSISTANCE. PT AGREES, FALL PRECAUTIONS IN PLACE AND CALL LIGHT IN REACH.
[2019-10-20 20:05] VITALS: BP 160/132
[2019-10-20 23:55] VITALS: BP 171/79
[2019-10-21 05:19] VITALS: BP 159/82
--- NOTE | 2019-10-21 07:02 | NUR ---
RECIEVED CARE OF THIS PATIENT AT 1900. PATIENT ALERT AND ORIENTED X4. DENIES PAIN. NPO SINCE VT FOR SURGERY TODAY. ACCUCHECK WAS 148, RECEIVED NO COVERAGE. SLEPT OFF AND ON DURING NIGHT. WENT TO SURGERY AT 0700.
[2019-10-21 14:39] VITALS: BP 163/81
--- NOTE | 2019-10-21 15:04 | NUR ---
PT WENT FOR LAP KRISTIN THIS DAY. PT IS GETTING IV ZOSYN. PT ON SERVICE WITH [facility] UPDATE HAD BEEN FAXED TO NOTIFY THEM OF POSSIBLE RESUMPTION ONCE MEDICALLY STABLE. CM TO FOLLOW INDICATED WITH DC PLANNING.
[2019-10-21 15:19] VITALS: BP 168/90
--- NOTE | 2019-10-21 16:01 | NUR ---
PT IS AOX4, VSS, NO C/O PAIN AT THIS TIME. PT IS TOLERATING CLEAR LIQUIDS. PT USES URINAL, CALLS APPROPRIATELY FOR NEEDS. PT'S 4 LAPAROSCOPIC SITES ARE DRY. CALL LIGHT IN REACH. IV IN RIGHT AC IS PATENT WITH IV FLUIDS RUNNING AT 125CC/HR. WILL CONTINUE TO MONITOR.
[2019-10-21 19:11] VITALS: BP 179/81
[2019-10-21 23:57] VITALS: BP 147/68
--- NOTE | 2019-10-22 02:53 | NUR ---
ASSUMED PT CARE AROUND 1899. AXOX4. IV RESITED TO RFA. S/P LAP KRISTIN. LAP SITES INTACT. PAIN MANAGED PER MD ORDER. BP STABLE AFTER PRN HYDRALAZINE. KEPT NPO AFTER MN FOR ERCP IN AM. NO S/S ACUTE DISTRESS NOTED OR REPORTED AT THIS TIME. WILL CONT TO MONITOR FOR ANY CHANGES IN CONDITION.
[2019-10-22 03:30] VITALS: BP 150/74
--- NOTE | 2019-10-22 04:30 | NUR ---
PT'S OVERNIGHT OUTPUT DID NOT MATCH INTAKE. PT'S BEEN EXPRIENCING URINARY URGENCY,FREQUENCY, UNABLE TO VOID AT WILL, PER PT, PT FEELS LIKE HE HAS TO GO BUT CAN'T GO. BLADDER SCANNED AND RESIDUAL WAS AROUND 830CC. CALLED JOHN PAUL, AGRICULTURAL AND FORESTRY SUPERVISOR FOR AND OBTAINED AN ORDER FOR URINARY CATHERTER. SINCE THE INSERTION, PT PUT OUT ABOUR 1100CC. CATHETER PATENT, STAT LOCK PLACED, AND ORANGE STICKERS PLACED ON CHART AND MARCUS BAG. PT TOLERATED PRCEDURE VERY WELL. WILL CONT TO MONITOR FOR ANY CHANGES.
[2019-10-22 05:50] LABS: HEMATOCRIT 38.9 % (42.0-52.0); HEMOGLOBIN 12.9 gm/dL (14.0-18.0); MCH 30.9 pg (26.0-34.0); MCHC 33.2 g/dL (28.0-37.0); MCV 93.1 fL (80.0-100.0); RBC 4.18 mil/uL (4.50-6.00); WBC 12.9 thou/uL (4.0-11.0)
[2019-10-22 06:08] LABS: ALBUMIN 2.6 g/dL (3.4-5.0); CALCIUM 8.5 mg/dL (8.5-10.1); CREATININE 1.6 mg/dL (0.7-1.3); POTASSIUM 4.3 mmol/L (3.5-5.1); TOTAL BILIRUBIN 1.1 mg/dL (<0.1-1.0); TOTAL PROTEIN 6.8 g/dL (6.4-8.2)
[2019-10-22 07:20] VITALS: BP 141/62
--- NOTE | 2019-10-22 10:48 | NUR ---
PT A&OX4. IV INTACT IN R FA INFUSING FLUIDS W/O COMPS. AMBULATES WITH STANDBY ASSIST. AMRIT TO [facility]A. PT HAVING ERCP AT THIS TIME. METOPROLOL PO GIVEN PRIOR TO TRANSPORT. WILL CONT POC.
--- NOTE | 2019-10-22 13:47 | NUR ---
BEATRIZ reviewed chart and spoke with attending physician. Pt is s/p shannan draper. Pt had ERCP earlier today. Pt remains on IV abx. Awaiting cultures at this time for recommendations for abx at time of discharge. Plan is for pt to resume HH services with [facility] upon discharge. Discharge home is anticipated for tomorrow. BEATRIZ updated [facility] liaison. Contact info for [facility] placed in pt's discharge summary. BEATRIZ is following to assist as needed with discharge planning.
--- NOTE | 2019-10-22 14:07 | PATH ---
[facility] [address] [place] [address] PATHOLOGY RPT PROCEDURE Name: JONAH DESIR Room #: 436-P [facility] IN M.R.#: [id number] Admission: 10/19/19 Date of : 41 Discharge: Report #: [id number] Path Case #: [id number] [facility] Accession Number: [id number] . 01 Material submitted: . gallbladder - GALLBLADDER . 01 Clinical history: . Cholecystitis . 02 Diagnosis: Gallbladder, cholecystectomy: - Moderate acute cholecystitis. - Focal hepatic parenchyma present showing nonspecific mild chronic inflammation. . (IUV:mml; 10/22/2019) [facility] 10/22/2019 1205 Local . 02 Electronically signed: . Fauzia Nino MD, Pathologist NPI- [id number] . 01 Gross description: . The specimen is received in formalin, labeled "Jonah Desir, gallbladder" and consists of a previously opened ragged hemorrhagic gallbladder measuring 7.7 x 3.1 x 0.6 cm. Attached to the body is liver tissue measuring 2.7 x 1.1 cm. No calculi or gross lesions are identified. The margin is inked black. The mucosa is red granular and the wall thickness is 0.1-0.2 cm. Fruit Culler sections are submitted in A1. ([facility]; 10/21/2019) JFQ/JFQ 10/21/2019 1449 Local . 02 Pathologist provided ICD-10: K81.1, K75.9 . 02 CPT . 941612 Specimen Comment: A courtesy copy of this report has been sent to [phone] Specimen Comment: Report sent to Performed at: [address] [id number] MD Spike Camacho MD Phone: [phone] Performed at: [address] [id number] [address] [address] PATHOLOGY RPT PROCEDURE Name: JONAH DESIR Room #: 436-P [facility] IN M.R.#: [id number] Admission: 10/19/19 Date of : 41 Discharge: Report #: [id number] Path Case #: [id number] MD Fazuia Nino MD Phone: [phone]
[2019-10-22 19:09] VITALS: BP 120/61
--- NOTE | 2019-10-23 02:14 | NUR ---
ASSESSED AT START OF SHIFT PT A&OX4 IV INTACT AND FLUIDS INFUISING. PT UP WITH ASSISTX1 WALKED THE [address] T[place]MAR[place]. SERA CATH IN PLACE. CALL LIGHT IN REACH. DENIES N/V. WILL CONT WITH POC TILL EOS.
[2019-10-23 03:31] VITALS: BP 118/62
[2019-10-23 07:44] VITALS: BP 126/73
[2019-10-23 09:06] LABS: HEMATOCRIT 33.7 % (42.0-52.0); HEMOGLOBIN 11.3 gm/dL (14.0-18.0); MCH 31.4 pg (26.0-34.0); MCHC 33.6 g/dL (28.0-37.0); MCV 93.3 fL (80.0-100.0); RBC 3.61 mil/uL (4.50-6.00); RDW 13.7 % (10.5-14.5); WBC 10.6 thou/uL (4.0-11.0)
[2019-10-23 09:57] LABS: ALBUMIN 2.4 g/dL (3.4-5.0); CALCIUM 7.6 mg/dL (8.5-10.1); CREATININE 1.5 mg/dL (0.7-1.3); POTASSIUM 4.1 mmol/L (3.5-5.1); TOTAL BILIRUBIN 0.5 mg/dL (<0.1-1.0); TOTAL PROTEIN 6.6 g/dL (6.4-8.2)
--- NOTE | 2019-10-23 10:49 | P ---
[facility] [place] [address] PROCEDURE REPORT Name: MAURISIO COTO Room #: 436-P ADM IN M.R.#: [id number] Admission: 10/19/19 Attend Phys: Myrtle Crane MD Discharge: Date of : 41 Report #: [id number] THIS REPORT FOR: cc: Killian Miranda MD, Michael D. MD McElhinney, Christian C. MD ~ CC: Felix Miranda DATE OF SERVICE: 10/22/2019 PROCEDURE PERFORMED: ERCP with sphincterotomy and stone removal. HISTORY OF PRESENT ILLNESS: The patient is a 74-year-old male with abdominal pain, fever. Blood cultures are positive for E. coli. CT scan of the abdomen and pelvis in July of this year showed cholelithiasis, nonspecific changes. The patient at that time was supposed to have a PIPIDA scan and see General Surgery, which was not done. During this admission, he was noted to have elevated bilirubin. An abdominal ultrasound on 10/19/2019 showed dependent sludge, small gallstones within the gallbladder without changes of acute cholecystitis, no evidence of ductal dilation. He underwent a laparoscopic cholecystectomy by Dr. Felix Vance yesterday. Intraoperative cholangiogram showed a large distal common bile duct stone. He attempted to remove this laparoscopically, but was unsuccessful. Plan is for ERCP today. Also noted on cholangiogram was a diverticulum. The patient is on IV antibiotics. DESCRIPTION OF PROCEDURE: The risks and benefits of the procedure were explained to the patient, those risks including but not limited to bleeding, perforation, the risk of sedation as well as potential risk for post-ERCP pancreatitis. He understood these risks and gave informed consent. The procedure was performed in the operating room under general anesthesia. Again, the patient is already on IV Zosyn at this time. A 50 mg indomethacin rectal suppository was given prior to the procedure as well. Next, using a standard Olympus ERCP side-viewing scope, the scope was placed in the patient's mouth and advanced under direct vision through the esophagus, stomach and into the second portion of the duodenum. Of note, in the duodenal bulb, several small clean white-based ulcers were noted. No evidence of bleeding. In the second portion of the duodenum, the patient has 2 diverticula. I was able to identify the major papilla within one of the diverticula on the edge. Next, using a Yasir-Cook 0.025 sphincterotome DomeTip catheter, the common bile duct was cannulated without difficulty. A cholangiogram was obtained. It did show mild dilation of the common bile duct at approximately 10-12 mm. The clips in the cystic duct were noted intact. There was no evidence of bile leak intrahepatic [facility] [address] [place] [address] PROCEDURE REPORT Name: MAURISIO COTO Room #: 436-P [facility] IN M.R.#: [id number] Admission: 10/19/19 Attend Phys: Myrtle Crane MD Discharge: Date of : 41 Report #: [id number] ducts were normal. No obvious filling defect was noted in the distal common bile duct, but it was somewhat hazy in appearance in this location due to the diverticulum. At this point, a guidewire was inserted into the intrahepatic ducts. Next, a sphincterotomy was performed. Once the sphincterotomy was performed, a single medium-size stone was retrieved as well as a moderate amount of sludge. There was no evidence of purulent material. Large sphincterotomy was performed. At this point, the wire was left in place and the sphincterotome catheter was removed. Next, a balloon catheter was then advanced over the wire and several balloon sweeps were then performed. No further stones were noted with balloon sweeps. A small amount of sludge was seen. At this point, a repeat balloon cholangiogram was then performed and again no obvious filling defects were noted at this time. The catheter and wire removed. The scope was then withdrawn and the procedure terminated. The patient tolerated the procedure well. IMPRESSION: 1. Distal common bile duct stone with sludge, status post ERCP with sphincterotomy and removal. 2. No evidence of bile leak. 3. Mild dilation of the common bile duct. 4. Two duodenal diverticula. 5. Duodenal bulb ulcers, nonbleeding. RECOMMENDATIONS: 1. Observe the patient post-procedure. 2. We will start daily PPI therapy. 3. We will check stool for H. pylori antigen. Thank you for allowing me to participate in his care. <ELECTRONICALLY SIGNED> By: Juan Carlos Palmer MD 10/23/19 1049 1100 1139 Juan Carlos Palmer MD /nt
[2019-10-23] MEDS ORDERED: AUGMENTIN 875-1 EACH PO (14:01)
[2019-10-23 14:54] VITALS: BP 148/73
--- NOTE | 2019-10-23 14:55 | NUR ---
CARE TEAM INDICATED THAT PT IS MEDICALLY STABLE TO DSICHARGE HOME THIS DAY. RESUMPTION ORDERS HAVE BEEN SENT TO [facility]. NO OTHER CM INTERVENTION INDICATED. CASE CLOSED.
--- NOTE | 2019-10-23 15:17 | NUR ---
ASSUMED CARE AT 0700. PT ALERT AND ORIENTED. RA, WITH NO COMPLAINTS AT THIS TIME. MARCUS PLACED OVERNIGHT FOR RETENTION. ORDER FOR DISCONTIUE PER MD. DISCONTINUED AT 1020. PT VOID X1 WITH A BM. STOOL SAMPLE SENT. PIV IN PLACE WITHOUT COMPLICATIONS. BOTH REMOVED AT 1450 WITHOUT COMPLICATIONS. LAP SITES CLEAN AND INTACT WITH DERMABOND. PT DISCHARGED THIS AFTERNOON. PT VERBALIZES UNDERSTANDING OF HIS PAPERWORK AND APPROPRIATE FOLLOW UP.
--- NOTE | 2019-10-24 10:50 | NUR ---
CALLED PT TO INFORM HIM OF HIS NEGATIVE TEST RESULTS. SPOKE WITH PATIENT.
== END 2019-10-23 15:42 | disposition home health service (06) | DRG 854 ==
LOC: ER 11:20 → EROBS 13:57 → 3W 13:57 → 4S 15:15 → 3W 19:16 → 4S 10-20 18:25
PROVIDERS: Emergency Medicine; Surgery; ADMIT Internal Medicine
PROC: 0FT44ZZ Resection of Gallbladder, Percutaneous Endoscopic Approach (ICD-10-PCS; principal; 2019-10-21)
PROC: BF141ZZ Fluoroscopy of Gallbladder, Bile Ducts and Pancreatic Ducts using Low Osmolar Contrast (ICD-10-PCS; principal; 2019-10-21)
PROC: BF131ZZ Fluoroscopy of Gallbladder and Bile Ducts using Low Osmolar Contrast (ICD-10-PCS; 2019-10-22)
PROC: 0FC98ZZ Extirpation of Matter from Common Bile Duct, Via Natural or Artificial Opening Endoscopic (ICD-10-PCS; 2019-10-22)
DX: A41.51 Sepsis due to Escherichia coli [E. coli] (principal); E87.1 Hypo-osmolality and hyponatremia; K80.46 Calculus of bile duct with acute and chronic cholecystitis without obstruction; N18.3 Chronic kidney disease, stage 3 (moderate); E78.5 Hyperlipidemia, unspecified; I12.9 Hypertensive chronic kidney disease with stage 1 through stage 4 chronic kidney disease, or unspecified chronic kidney disease; E83.42 Hypomagnesemia; K21.9 Gastro-esophageal reflux disease without esophagitis; I25.10 Atherosclerotic heart disease of native coronary artery without angina pectoris; E11.22 Type 2 diabetes mellitus with diabetic chronic kidney disease; M19.90 Unspecified osteoarthritis, unspecified site; Z95.1 Presence of aortocoronary bypass graft; Z79.899 Other long term (current) drug therapy; Z79.82 Long term (current) use of aspirin; I25.2 Old myocardial infarction; Z86.010 Personal history of colon polyps; K83.8 Other specified diseases of biliary tract; K57.10 Diverticulosis of small intestine without perforation or abscess without bleeding; K26.9 Duodenal ulcer, unspecified as acute or chronic, without hemorrhage or perforation; R33.8 Other retention of urine; N40.1 Benign prostatic hyperplasia with lower urinary tract symptoms; Z20.828 Contact with and (suspected) exposure to other viral communicable diseases; E86.0 Dehydration
CPT/HCPCS: 10102; 10779; 50010; 50101; 50249; 50411; 50555; 50558; 51297; 51489; 52265; 52266; 53307; 53310; 53312; 54022; 54118; 55245; 56462; 56525; 56526; 56674; 57160; 62110; 62900; 70005

== ENCOUNTER → 2019-11-04 | Outpatient (CLI) | payer OTHER ==
[~2019-11-04] MED LIST changes: +AUGMENTIN 875-1 EACH PO
== END ==
LOC: SJCVC 14:37 → SJCVCIMAG 14:37
DX: M79.89 Other specified soft tissue disorders (principal); M79.661 Pain in right lower leg; M79.662 Pain in left lower leg; I25.10 Atherosclerotic heart disease of native coronary artery without angina pectoris; R60.9 Edema, unspecified; E78.00 Pure hypercholesterolemia, unspecified; I10 Essential (primary) hypertension

== ENCOUNTER → 2019-11-11 | Outpatient (CLI) | payer OTHER | LOC: SJCVC 10:56 | DX: I25.10 Atherosclerotic heart disease of native coronary artery without angina pectoris (principal) ==

== ENCOUNTER → 2019-11-18 | Outpatient (CLI) | payer OTHER | LOC: SJCVC 13:48 | PROVIDERS: ATTEND Internal Medicine Cardiovascular Disease | DX: R60.9 Edema, unspecified (principal) ==

== ENCOUNTER → 2019-11-25 | Outpatient (CLI) | payer OTHER | LOC: SJCVCIMAG 09:46 | PROVIDERS: ATTEND Internal Medicine Cardiovascular Disease | DX: R94.31 Abnormal electrocardiogram [ECG] [EKG] (principal); I25.10 Atherosclerotic heart disease of native coronary artery without angina pectoris; I10 Essential (primary) hypertension; R60.9 Edema, unspecified; E78.00 Pure hypercholesterolemia, unspecified; N28.9 Disorder of kidney and ureter, unspecified ==

== ENCOUNTER 2019-12-26 09:05 | Emergency (ER) | payer OTHER ==
[~2019-12-26] VITALS: Ht 188 cm; Wt 108.9 kg
[2019-12-26 09:40] LABS: URINE BILIRUBIN 1+ (Negative); URINE BLOOD 3+ (Negative); URINE GLUCOSE-RANDOM* NEGATIVE (Negative); URINE KETONES NEGATIVE (Negative); URINE LEUKOCYTES-REFLEX NEGATIVE (Negative); URINE PROTEIN (DIPSTICK) 3+ (Negative); URINE UROBILINOGEN 0.2 E.U./dl (0.2-1.0)
[2019-12-26 09:41] LABS: URINE COLOR RED; URINE NITRITE-REFLEX POSITIVE (Negative)
[2019-12-26 09:42] LABS: URINE CLARITY CLOUDY
[2019-12-26 09:43] LABS: CASTS None Seen /LPF (None Seen); SQUAMOUS 0-3 Few /LPF (0-3)
[2019-12-26 09:44] LABS: BACTERIA-REFLEX None Seen /HPF (None Seen); CRYSTALS None Seen /LPF (None Seen); URINE RBC >20 Many /HPF (0-2); URINE WBC-REFLEX 0-5 Rare /HPF (0-5)
[2019-12-26 09:51] LABS: ABSOLUTE NEUTROPHILS 3.5 thou/uL (1.4-8.2); BASOPHILS 0.5 % (0.0-2.0); EOSINOPHILS 2.4 % (0.0-3.0); HEMATOCRIT 28.7 % (42.0-52.0); HEMOGLOBIN 9.9 gm/dL (14.0-18.0); LYMPHOCYTES 32.5 % (24.0-44.0); MCH 30.8 pg (26.0-34.0); MCHC 34.4 g/dL (28.0-37.0); MCV 89.7 fL (80.0-100.0); MONOCYTES 6.9 % (1.0-8.0); PLATELET COUNT 173 thou/uL (150-400); POLYS 57.7 % (36.0-66.0); RDW 16.5 % (10.5-14.5)
[2019-12-26 09:59] LABS: ANION GAP 9 mmol/L (7-16); BUN 35 mg/dL (7-18); CALCIUM 8.9 mg/dL (8.5-10.1); CHLORIDE 106 mmol/L (98-107); CO2 26 mmol/L (21-32); CREATININE 2.8 mg/dL (0.7-1.3); GLUCOSE 160 mg/dL (74-106); POTASSIUM 3.9 mmol/L (3.5-5.1); SODIUM 141 mmol/L (136-145)
[2019-12-26 10:05] LABS: ALBUMIN 3.6 g/dL (3.4-5.0); DIRECT BILIRUBIN < 0.1 mg/dL (<0.1-0.2); SGOT 14 U/L (15-37); SGPT 18 U/L (30-65); TOTAL BILIRUBIN 0.6 mg/dL (0.2-1.0); TOTAL PROTEIN 7.3 g/dL (6.4-8.2)
[2019-12-26 10:53] VITALS: BP 146/66
== END 2019-12-26 10:47 | disposition home or self-care (01) ==
LOC: ER 09:05
PROVIDERS: Emergency Medicine
DX: N17.9 Acute kidney failure, unspecified (principal); R31.9 Hematuria, unspecified; E11.9 Type 2 diabetes mellitus without complications; E78.5 Hyperlipidemia, unspecified; I10 Essential (primary) hypertension; M19.90 Unspecified osteoarthritis, unspecified site; Z98.61 Coronary angioplasty status; Z79.2 Long term (current) use of antibiotics; Z79.82 Long term (current) use of aspirin; Z79.899 Other long term (current) drug therapy

== ENCOUNTER 2020-01-23 22:57 | Emergency (ER) | payer OTHER ==
[~2020-01-23] VITALS: Ht 188 cm; Wt 108.9 kg
[2020-01-23] MEDS ORDERED: CEPHALEXIN500 MG PO (23:23)
[2020-01-23] MEDS ORDERED: DUTASTERIDE0.5 MG PO (23:24)
[2020-01-23] MEDS ORDERED: METAMUCIL1 EAC1 PO (23:25)
[2020-01-23] MEDS ORDERED: [UNRECOGNIZED DRUG - OTHER] PO (23:26)
[2020-01-23] MEDS ORDERED: FOCUS PO (23:26)
[2020-01-23 23:47] LABS: URINE BILIRUBIN NEGATIVE (Negative); URINE BLOOD 3+ (Negative); URINE CLARITY CLOUDY; URINE COLOR RED; URINE GLUCOSE-RANDOM* TRACE (Negative); URINE KETONES TRACE (Negative); URINE PROTEIN (DIPSTICK) 3+ (Negative); URINE SPECIFIC GRAVITY 1.015 (1.005-1.035)
[2020-01-23 23:48] LABS: URINE LEUKOCYTES-REFLEX 2+ (Negative); URINE NITRITE-REFLEX POSITIVE (Negative)
[2020-01-24 00:13] LABS: ABSOLUTE NEUTROPHILS 7.8 thou/uL (1.4-8.2); BASOPHILS 0.3 % (0.0-2.0); HEMATOCRIT 28.2 % (42.0-52.0); HEMOGLOBIN 9.7 gm/dL (14.0-18.0); LYMPHOCYTES 19.7 % (24.0-44.0); MCHC 34.6 g/dL (28.0-37.0); MCV 89.4 fL (80.0-100.0); MONOCYTES 9.5 % (1.0-8.0); PLATELET COUNT 172 thou/uL (150-400); POLYS 68.5 % (36.0-66.0); RBC 3.15 mil/uL (4.50-6.00); RDW 15.6 % (10.5-14.5); WBC 11.4 thou/uL (4.0-11.0)
[2020-01-24 00:14] LABS: BACTERIA-REFLEX None Seen /HPF (None Seen); CASTS None Seen /LPF (None Seen); CRYSTALS None Seen /LPF (None Seen); MUCUS None Seen strn/LPF (None Seen); SQUAMOUS None Seen /LPF (0-3); URINE RBC >20 Many /HPF (0-2); URINE WBC-REFLEX 0-5 Rare /HPF (0-5)
[2020-01-24 00:21] LABS: CALCIUM 8.5 mg/dL (8.5-10.1); CREATININE 2.8 mg/dL (0.7-1.3); POTASSIUM 4.6 mmol/L (3.5-5.1)
[2020-01-24 02:11] VITALS: BP 150/65
[2020-01-24] MEDS ORDERED: KEFLEX500 M1 PO (20:25)
== END 2020-01-24 02:22 | disposition home or self-care (01) ==
LOC: ER 22:57
PROVIDERS: Emergency Medicine
DX: R31.9 Hematuria, unspecified (principal); T83.83XA Hemorrhage due to genitourinary prosthetic devices, implants and grafts, initial encounter; I10 Essential (primary) hypertension; E11.9 Type 2 diabetes mellitus without complications; E78.5 Hyperlipidemia, unspecified; Z79.899 Other long term (current) drug therapy

== ENCOUNTER 2020-01-24 19:47 | Emergency (ER) | payer OTHER ==
[~2020-01-24] VITALS: Ht 188 cm; Wt 108.9 kg
[~2020-01-24 19:47] MED LIST changes: +CEPHALEXIN500 MG PO; +DUTASTERIDE0.5 MG PO; +FOCUS PO; +METAMUCIL1 EAC1 PO; +[UNRECOGNIZED DRUG - OTHER] PO
[2020-01-24 20:22] LABS: URINE BILIRUBIN 2+ (Negative); URINE BLOOD 3+ (Negative); URINE CLARITY CLOUDY; URINE COLOR RED; URINE GLUCOSE-RANDOM* TRACE (Negative); URINE KETONES TRACE (Negative); URINE PROTEIN (DIPSTICK) 3+ (Negative); URINE SPECIFIC GRAVITY 1.015 (1.005-1.035)
[2020-01-24] MEDS ORDERED: KEFLEX500 M1 PO (20:25)
[2020-01-24 20:28] LABS: ICTOTEST (BILI CONFIRMATORY) Negative (Negative); URINE LEUKOCYTES-REFLEX 2+ (Negative); URINE NITRITE-REFLEX POSITIVE (Negative)
[2020-01-24 20:29] LABS: URINE RBC >20 Many /HPF (0-2)
[2020-01-24 20:30] LABS: BACTERIA-REFLEX 1-9 Few /HPF (None Seen); CASTS None Seen /LPF (None Seen); CRYSTALS None Seen /LPF (None Seen); SQUAMOUS 0-3 Few /LPF (0-3); URINE WBC-REFLEX 6-15 Few /HPF (0-5)
[2020-01-25 00:02] VITALS: BP 151/73
== END 2020-01-25 00:04 | disposition home or self-care (01) ==
LOC: ER 19:47
PROVIDERS: Emergency Medicine
DX: T83.098A Other mechanical complication of other urinary catheter, initial encounter (principal); R31.9 Hematuria, unspecified; I10 Essential (primary) hypertension; E11.9 Type 2 diabetes mellitus without complications; E78.5 Hyperlipidemia, unspecified; Z95.1 Presence of aortocoronary bypass graft; Z79.899 Other long term (current) drug therapy; Z79.82 Long term (current) use of aspirin

== ENCOUNTER 2020-02-02 15:53 | Inpatient (IN) | payer OTHER ==
[~2020-02-02] VITALS: Ht 188 cm; Wt 110.2 kg
[~2020-02-02 15:53] MED LIST changes: +KEFLEX500 M1 PO
[2020-02-02 15:55] VITALS: BP 126/56
[2020-02-02 16:24] LABS: ABSOLUTE NEUTROPHILS 6.1 thou/uL (1.4-8.2); BASOPHILS 0.3 % (0.0-2.0); EOSINOPHILS 4.3 % (0.0-3.0); HEMOGLOBIN 10.1 gm/dL (14.0-18.0); LYMPHOCYTES 19.1 % (24.0-44.0); MCH 31.3 pg (26.0-34.0); MCHC 34.8 g/dL (28.0-37.0); MCV 90.1 fL (80.0-100.0); MONOCYTES 6.1 % (1.0-8.0); PLATELET COUNT 250 thou/uL (150-400); POLYS 70.2 % (36.0-66.0); RBC 3.22 mil/uL (4.50-6.00); RDW 15.1 % (10.5-14.5); WBC 8.7 thou/uL (4.0-11.0)
[2020-02-02 16:31] LABS: ANION GAP 10 mmol/L (7-16); BUN 38 mg/dL (7-18); CHLORIDE 103 mmol/L (98-107); CO2 25 mmol/L (21-32); CREATININE 2.4 mg/dL (0.7-1.3); GLUCOSE 308 mg/dL (74-106); POTASSIUM 4.3 mmol/L (3.5-5.1); SODIUM 138 mmol/L (136-145)
[2020-02-02 16:41] LABS: ALBUMIN 3.1 g/dL (3.4-5.0); SGOT 16 U/L (15-37); SGPT 26 U/L (30-65); TOTAL BILIRUBIN 0.2 mg/dL (0.2-1.0); TOTAL PROTEIN 7.3 g/dL (6.4-8.2); TROPONIN-I <0.06 ng/mL (<0.06)
[2020-02-02 20:46] VITALS: BP 134/68
[2020-02-02 20:55] VITALS: BP 134/68
[2020-02-02 21:41] VITALS: BP 138/77
[2020-02-03 01:33] VITALS: BP 122/65
[2020-02-03 04:45] VITALS: BP 116/66
--- NOTE | 2020-02-03 05:47 | NUR ---
Pt is admitted from ER with chest pain. Upon arrival to the floor, pt denies chest pain. No sign of distress noted in pt. Admission assessment and data completed. Pt is stable. Pt is swabbed. Continue to monitor pt. No further needs at this time
[2020-02-03 05:59] LABS: HEMATOCRIT 27.9 % (42.0-52.0); HEMOGLOBIN 9.7 gm/dL (14.0-18.0); MCH 31.3 pg (26.0-34.0); MCHC 34.7 g/dL (28.0-37.0); MCV 90.2 fL (80.0-100.0); RBC 3.09 mil/uL (4.50-6.00); RDW 15.2 % (10.5-14.5); WBC 9.7 thou/uL (4.0-11.0)
[2020-02-03 06:19] LABS: ANION GAP 9 mmol/L (7-16); BUN 35 mg/dL (7-18); CALCIUM 9.2 mg/dL (8.5-10.1); CHLORIDE 105 mmol/L (98-107); CHOLESTEROL 76 mg/dL (<200); CO2 25 mmol/L (21-32); CREATININE 2.1 mg/dL (0.7-1.3); GLUCOSE 154 mg/dL (74-106); HDL CHOLESTEROL 37 mg/dL (>40); LDL CHOLESTEROL 24 mg/dL (<100); MAGNESIUM 1.8 mg/dL (1.8-2.4); POTASSIUM 4.4 mmol/L (3.5-5.1); SODIUM 139 mmol/L (136-145); TC:HDL 2.1 Ratio (Not establshd); TRIGLYCERIDE 79 mg/dL (<150); VLDL 16 mg/dL (<40)
[2020-02-03 06:30] LABS: SERUM ASSESSMENT Clear
[2020-02-03 08:11] VITALS: BP 127/62
--- NOTE | 2020-02-03 08:30 | EKG ---
[facility] [place] [address] ELECTROCARDIOGRAM REPORT Name: MAURISIO COTO Room #: 208-P ADM IN M.R.#: [id number] Admission: 02/02/20 Attend Phys: Skip Olsen MD Discharge: Date of : 41 Report #: [id number] THIS REPORT FOR: cc: DC - No family physician/PCP FAM - No family physician/PCP Alvaro Carbajal MD [facility] ~ THIS REPORT FOR: //name// [facility] ED Test Date: 2020-02-02 Test Time: 15:54:51 Pat Name: MAURISIO COTO Department: Room: 208 Gender: M Slot Manager: RANDY : 1945 Requested By: Varsha Griffin Order Number: [id number] MD: Alvaro Carbajal Measurements Intervals [place] Rate: 75 P: 4 SC: 190 QRS: 17 QRSD: 120 T: 165 QT: 430 QTc: 481 Interpretive Statements Sinus rhythm Nonspecific intraventricular conduction delay Repol abnrm suggests ischemia, anterolateral Compared to ECG 09/22/2019 17:53:18 Sinus tachycardia no longer present Electronically Signed On 02-03-2020 8:30:08 CDT by Alvaro Carbajal [email or web address] <ELECTRONICALLY SIGNED> By: Alvaro Carbajal MD, [facility] 02/03/20 0830 1554 1554 Alvaro Carbajal MD, [facility] /EPI
[2020-02-03 11:29] VITALS: BP 108/61
--- NOTE | 2020-02-03 14:22 | NUR ---
Case opened to follow for dc planning. Pt known to cm from recent inpt stay in September this year. He dc'd to home with [facility] after a lap baron/ERCP. The pt was on service with [facility] until 12/23/19. His pcp is Dr. Killian Caruso and he say him two days ago. He is also seeing a urologist and has a starr cath in place. Enrober Tender visited with the pt via phone and he indicates that his is getting around ok with his cane/rwalker at home. His girl friend lives with him and helps out with his IADLs and takes him to his appts. He is receptive to having hh again thru [facility] if needed at dc. Cm role reintroduced. Will follow.
[2020-02-03 15:08] VITALS: BP 117/65
--- NOTE | 2020-02-03 15:49 | NUR ---
AAOX4. VERY CHEFORNAK. SR WITH BBB PER TELE. MULTIPLE LAB TESTS AND SCHEDULED FOR CARDIAC CATH TOMORROW. UA SENT TO LAB. WORKING WITH PT AND OT. FALL PRECAUTIONS IN PLACE. WILL CONTINUE TO FOLLOW CLOSELY.
[2020-02-03 15:53] LABS: URINE BILIRUBIN NEGATIVE (Negative); URINE BLOOD 3+ (Negative); URINE CLARITY SL CLOUDY; URINE COLOR YELLOW; URINE GLUCOSE-RANDOM* NEGATIVE (Negative); URINE KETONES NEGATIVE (Negative); URINE LEUKOCYTES 2+ (Negative); URINE NITRITE POSITIVE (Negative); URINE PROTEIN (DIPSTICK) 2+ (Negative); URINE UROBILINOGEN 0.2 E.U./dl (0.2-1.0)
[2020-02-03 15:58] LABS: PROT/CREAT RATIO 1.8; URINE CREATININE-RANDOM* 79.6 mg/dL; URINE PROTEIN-RANDOM* 145.1 mg/dL (<11.9)
[2020-02-03 16:19] LABS: CASTS None Seen /LPF (None Seen); CRYSTALS None Seen /LPF (None Seen); SQUAMOUS 0-3 Few /LPF (0-3); URINE RBC >20 Many /HPF (0-2)
--- NOTE | 2020-02-03 16:50 | NUR ---
Gave patient information regarding poa paperwork. patient wanted caset to call brother Wayne Desir [phone]. Wayne reports they want to get POA paperwork completed. He reports he has a form from their attnorney he may bring tomorrow. Alerted our notaries at [facility] may not notorize a form which is not our document. Wayne plans to review ours and his own. he plans to call caset if questions and will likley request a notary tomorrow. updated casemgr for unit.
[2020-02-03 20:00] VITALS: BP 123/65
[2020-02-04] VITALS (13 sets, daily range): BP systolic 100–1114; BP diastolic 52–69
[2020-02-04 01:06] LABS: GLYCOHEMOGLOBIN (HGB A1C) 7.2 % (4.8-5.6)
--- NOTE | 2020-02-04 04:32 | NUR ---
Assumed pt care at 1900. Pt is alert and oriented. No sign of distress noted in pt. Pt is sitting in chair resting. Denies any pain. Assessment completed and documented. Pt transferred from chair to bed adequately. Fall precaution in place. Scheduled meds administered to pt. Pt is NPO after midnight for cardiac cath. Pt is stable through the night. No acute event. Continue to monitor. Denies any further needs at this time.
[2020-02-04 06:49] LABS: ALBUMIN 3.2 g/dL (3.4-5.0); CALCIUM 8.8 mg/dL (8.5-10.1); PHOSPHORUS 4.4 mg/dL (2.5-4.9); POTASSIUM 4.7 mmol/L (3.5-5.1)
--- NOTE | 2020-02-04 11:02 | NUR ---
Case discussed with the care team. Pt had cardiac cath this am with stents x 2. Likely dc to home tomorrow. Can have hh if indicated. [facility] was his most recent provider.
[2020-02-04 13:43] LABS: HEMATOCRIT 29.5 % (42.0-52.0); MCH 30.7 pg (26.0-34.0); MCHC 33.7 g/dL (28.0-37.0); RBC 3.24 mil/uL (4.50-6.00); RDW 15.4 % (10.5-14.5); WBC 11.7 thou/uL (4.0-11.0)
--- NOTE | 2020-02-04 15:08 | NUR ---
Pt's brother Wayne is dropping off a DPOA for health care and finances document for the pt per security. Pt has requested notary services. Message left for spiritual care requesting they stop by to see the pt this afternoon or in the am to provide notary services.
[2020-02-04 17:54] LABS: URINE BILIRUBIN 2+ (Negative); URINE BLOOD 3+ (Negative); URINE CLARITY CLOUDY; URINE COLOR RED; URINE GLUCOSE-RANDOM* TRACE (Negative); URINE KETONES 1+ (Negative); URINE PROTEIN (DIPSTICK) 3+ (Negative); URINE SPECIFIC GRAVITY <= 1.005 (1.005-1.035)
[2020-02-04 18:00] LABS: URINE LEUKOCYTES-REFLEX 3+ (Negative); URINE NITRITE-REFLEX POSITIVE (Negative)
[2020-02-04 18:01] LABS: ICTOTEST (BILI CONFIRMATORY) Positive (Negative)
[2020-02-04 18:02] LABS: BACTERIA-REFLEX 1-9 Few /HPF (None Seen); CASTS None Seen /LPF (None Seen); CRYSTALS None Seen /LPF (None Seen); SQUAMOUS None Seen /LPF (0-3); URINE RBC >20 Many /HPF (0-2)
--- NOTE | 2020-02-04 18:30 | NUR ---
RECEIVED PT'S CARE AROUND 0736; PT. GONE FOR PROCEDURE, CARDIAC CATH, AT SHIFT CHANGE; BACK FROM PROCEDURE AROUND 0940; PT. AOX4; R. GROIN SIDE BLEEDING WHEN TRANSFER CARE; HOLD PRESSURE FOR 25 MIN; EDUCATED ABOUT MANTAINING RLE STRAIGH; HOLDING PRESSURE WHEN COUGHING; BED REST; ST. UNDERSTANDING; VS WNL; WHEN GIVEN AM MEDICATIONS PT. R. GROIN SIDE BLEEDING; HOLD PRESSURE FOR 25 MIN; PHYSICIAN NOTIFIED; NO HEMATOMA AFTER PRESSURE HOLD; DRESSING CHANGE; ON BES REST FOR 6H; EDUCATED ABOUT MANTAIN LEG STRAIGH; DARK RED COLOR URINE; PHYSICIAN NOTIFIED; ORDERS RECEIVED; URINE SAMPLE COLLECTED; SR ON THE MONITOR; ASSESSMENT CHARGED; FOLLOWING POC; WILL PASS ON REPORT;
[2020-02-05] VITALS (9 sets, daily range): BP systolic 115–134; BP diastolic 57–66
[2020-02-05 06:49] LABS: HEMATOCRIT 27.1 % (42.0-52.0); HEMOGLOBIN 9.3 gm/dL (14.0-18.0); MCH 30.8 pg (26.0-34.0); MCHC 34.3 g/dL (28.0-37.0); MCV 89.8 fL (80.0-100.0); RBC 3.02 mil/uL (4.50-6.00); RDW 14.7 % (10.5-14.5); WBC 10.6 thou/uL (4.0-11.0)
[2020-02-05 07:45] LABS: ALBUMIN 2.9 g/dL (3.4-5.0); CALCIUM 9.1 mg/dL (8.5-10.1); CREATININE 2.3 mg/dL (0.7-1.3); PHOSPHORUS 3.7 mg/dL (2.5-4.9); POTASSIUM 4.3 mmol/L (3.5-5.1); TOTAL BILIRUBIN 0.5 mg/dL (0.2-1.0); TOTAL PROTEIN 6.9 g/dL (6.4-8.2)
--- NOTE | 2020-02-05 08:26 | NUR ---
ASSUMED PT CARE AT CHANGE OF SHIFT, PT IS AWAKE, ALERT AND ORIENTED, MAKES NEEDS KNOWN, ASSESSMENTS CHARTED, GROIN SITE CDI, NO HEMATOMA, VSS, BS STABLE, BLOOD TINGED URINE FROM THE MARCUS, 920 OUT OF MARCUS THIS AM, DENIES CHEST PAIN OR SB, SR ON THE MONITOR, NO ACUTE DISTRESS NOTED, PASSED ON REPORT TO DAY NURSE
--- NOTE | 2020-02-05 09:18 | EKG ---
[facility] [place] [address] ELECTROCARDIOGRAM REPORT Name: MAURISIO COTO Room #: 208-P ADM IN M.R.#: [id number] Admission: 02/02/20 Attend Phys: Skip Olsen MD Discharge: Date of : 41 Report #: [id number] THIS REPORT FOR: cc: DC - Mare family physician/PCP DC - Mare family physician/PCP Alvaro Carbajal MD [facility] ~ THIS REPORT FOR: //name// [facility] Test Date: 2020-02-05 Test Time: 07:11:21 Pat Name: MAURISIO COTO Department: Room: 208 P Gender: M Oven Tender Bagels: SONNY : 1945 Requested By: Blair Evans Order Number: [id number] MD: Alvaro Carbajal Measurements Intervals [place] Rate: 72 P: 59 CT: 189 QRS: 12 QRSD: 113 T: 154 QT: 424 QTc: 465 Interpretive Statements Sinus rhythm T wave abnormality, consider lateral ischemia Compared to ECG 02/02/2020 15:54:51 No significant change was found Electronically Signed On 02-05-2020 9:18:20 CDT by Alvaro Carbajal [email or web address] <ELECTRONICALLY SIGNED> By: Alvaro Carbajal MD, [facility] 02/05/20917 0 0 Alvaro Carbajal MD, [facility] /EPI
--- NOTE | 2020-02-05 09:35 | CATHLAB ---
[facility] [address] [place] [address] INVASIVE PROCEDURE REPORT Name: MAURSIIO COTO Room #: 208-P ADM IN M.R.#: [id number] Admission: 02/02/20 Attend Phys: Skip Olsen MD Discharge: Date of : 41 Report #: [id number] THIS REPORT FOR: cc: FAM - No family physician/PCP FAM - No family physician/PCP Blair Evans MD ~ APPROVED REPORT Study performed: 02/04/2020 07:57:36 Patient Details Patient Status: In-Patient Room #: The patient is a 74 year-old male Event Personnel Blair Evans Pnp, Francoise Llamas RTR, RETAIL MARKETING MANAGER Monitor, Georgia Coronado RN RN, Nolan Moraes RN RN, Dorina Grayson RTR Scrub Procedures Performed Art Access - R femoral artery* Left Heart Cath Coronaries, Bypass Grafts 3589621 LHCCORCABG MADELINE Place w/wo Plasty Single CIRC 629552 MADELINE Revasc Graft Single OM C9604 SVGREVSING Hemostasis w/ Mynx 75325 Initial Mod Sed Same Phys/QHP Gr5y 980431 62518 Mod Sed Same Phys/QHP Ea 495120 Indication Non-STEMI , Dyspnea, Chest pain Risk Factors Hypercholesterolemia, Coronary Artery DiseaseHypertensionRenal Failure, Diabetes Previous Procedures/Diagnoses Previous CABG Procedure Narrative The Right Groin^ was infiltrated with 1% Lidocaine subcutaneous anesthesia. A PINNACLE 4FR Sheath #[id number] sheath was inserted into the RFA^. Coronary angiography was performed using coronary diagnostic catheters. The right coronary system was accessed and visualized with a JR4 catheter. The left coronary system was accessed and visualized with a 4FR JL 5.0 #[id number] catheter. The left ventricle was accessed and visualized with a ANGLED PIGTAIL catheter. Left [facility] [place] [address] INVASIVE PROCEDURE REPORT Name: MAURISIO COTO Jose Room #: 208-P [facility] IN M.R.#: [id number] Admission: 02/02/20 Attend Phys: Skip Olsen, Discharge: Date of : 41 Report #: [id number] ventricular/Aortic Valve gradient assessed via catheter pullback. Pre-demployment femoral angiogram was performed . Closure device was deployed with a 6 Fr MYNXGRIP 6/7F #[id number]. The patient tolerated the procedure well and there were no complications associated with the procedure. There was no hematoma. Intraoperative Conscious Sedation Sedation start time: 07:56 Case end Time: 09:32 Fentanyl 100 mcg Versed 1.5 mg Fluoro Time: 23.40 minutes Dose: DAP 69397.00 cGycm2 3370 mGy Contrast Type and Amount: Visipaque 210 ml [place] Artery Percent Stenosis Left Main: % Prox LAD: 80 % Mid/Distal LAD: % Circumflex: 90 % RCA: % Ramus: % Diagnostic Cath LAD There is a severe stenosis at the distal anastomotic site of the SRIVASTAVA graft to the mid LAD segment, 70 to 80%. Diagonal 1 There is a Y graft originating from the midsegment of the SRIVASTAVA graft, with an end-to-side anastomosis to the first diagonal artery. This segment is patent with no flow-limiting lesions. Circumflex There is a severe stenosis in the midsegment of the left circumflex artery, compromising blood flow to the second obtuse marginal artery. OM1 There is a free radial artery conduit with a severe stenosis at the distal anastomotic site to OM1, 80%. Right Coronary The RCA is a dominant vessel, patent with minimal disease proximally. R PDA This is a moderate-sized caliber vessel, patent with no flow-limiting lesions. RPLV This is a small to moderate-sized caliber vessel, patent with no flow-limiting lesions. Left Ventriculography Left Ventriculography was not performed. Ejection Fraction was >55% based off patient's Echocardiogram. An LVEDP was measured and there is no gradient across the outflow tract. Hemodynamics The aortic pressure is 129/64 mmHg with a mean of 95 mmHg. The left ventricular pressure is 135/13 mmHg with a mean of mmHg. The left [facility] [address] [place] [address] INVASIVE PROCEDURE REPORT Name: MAURISIO COTO Room #: 208-P [facility] IN M.R.#: [id number] Admission: 02/02/20 Attend Phys: Skip Olsen, Discharge: Date of : 41 Report #: [id number] ventricular end diastolic pressure is 23 mmHg. PCI Technique Lesion Percutaneous coronary intervention was performed on the distal anastomosis of free radial artery conduit to OM1. The lesion stenosis prior to intervention was 80% with GORGE 3 flow. A LAUNCHER 6FR AL75 #840883 Guide Catheter was used to engage the ostium. A Luge Wire .014 x 182CM #727130 Interventional Guidewire was used to cross the lesion. BALLOON DILATION A Balloon catheter Euphora RX 2.0 x 10 #[id number] was inserted and inflated up to 12.00atm for 20seconds. Additional Inflation: 12.00atm for 15seconds. STENT DEPLOYMENT A drug-eluting stent XIENCE KODAK RX 2.25 X 15 #[id number] was inserted and inflated up to 16.00atm for 21seconds. Final angiography reveals 0 % stenosis with GORGE 3 flow. PCI Technique Lesion 2 Percutaneous Coronary Intervention was performed on the mid circumflex artery segment. Percutaneous coronary intervention was performed on the mid circumflex artery segment. The lesion stenosis prior to intervention was 90% with GORGE 3 flow. A [place]IST[place] 6FR XB 4 #[id number] Guide Catheter was used to engage the ostium. A Luge Wire .014 x 182CM #697466 Interventional Guidewire was used to cross the lesion. Balloon Dilation A Balloon catheter Euphora RX 2.0 x 10 #[id number] was inserted and inflated up to 14.00atm for 15seconds. Additional Inflation: 16.00atm for 17seconds. Stent Deployment A drug-eluting stent RESOLUTE RAYO RX 2.25 X 18 #[id number] was inserted and inflated up to 18.00atm for 13seconds. Final angiography reveals 0 % stenosis with GORGE 3 flow. Conclusion 1. Successful insertion of a drug-eluting stent into the mid segment of a left circumflex artery. 2. Successful insertion of a drug-eluting stent to the distal [facility] [address] [place] [address] INVASIVE PROCEDURE REPORT Name: MAURISIO COTO Room #: 208-P [facility] IN .R.#: [id number] Admission: 02/02/20 Attend Phys: Skip Olsen, Discharge: Date of : 41 Report #: [id number] anastomosis of the free radial artery conduit to OM1. 3. Severe stenosis at the distal anastomotic site of the SRIVASTAVA graft to the LAD, recommend medical therapy versus staged angioplasty. 4. The [place] RCA is patent with minimal disease. 5. Recommend dual antiplatelet therapy and aggressive risk factor management. <ELECTRONICALLY SIGNED> By: Blair Evans MD 02/05/2034 3 3 Blair Evans MD /INF
--- NOTE | 2020-02-05 15:10 | NUR ---
Spiritual care to check on the pt today and see if he does wish [facility] to complete his DPOA for HC document. Pt's brother Wayne dropped it by yesterday and pt was reviewing it overnight. Wayne would be the primary agent and brother Cameron the alternate if notorized. No dc anticipated today as the pt has starr in place with hematuria. Possible dc this weekend. recommended for RN visits which he has had thru [facility] in the past. If HH is ordered at [place], staff to call Ellen castellanos RN at [phone] and Fax her dc summary/instructions to [phone].
--- NOTE | 2020-02-05 20:32 | NUR ---
RECEIVED PT'S CARE AROUND 0720; PT. ON BED; ALERT; DURING AM ASSESSMENT AOX4; NO C/O PAIN; R. SIDE INCISION C/D/I; AM MEDICATIONS GIVEN; HOSPITALIST AT THE BED SIDE; AWARE OF BLOOD TINGE IN THE MARCUS; SR ON THE MONITOR; UP WITH PT & OT; TOLERATE WELL; PER HOSPITALIST IRREGATE BLADDER; BLADDER IRRIGATE WITH 350; BLOOD CLOTS PASS; BROWN COLOR URINE; PASSED ON REPORT; ASSESSMENT CHARGED; FOLLOWING POC; PASSED ON REPORT;
[2020-02-06 00:30] VITALS: BP 142/75
--- NOTE | 2020-02-06 02:59 | NUR ---
PATIENT ALERT AND ORIENTED X4. UP IN CHAIR AT SHIFT CHANGE. MARCUS TO D/D WITH TEA COLORED URINE. UP WITH WALKER WITH SBA. SOMEWHAT PECH[place]GA. BS MONITORED PER ORDER. REMAINS A-FIB WITH TELE. COOPERATIVE WITH CARE. RESTING QUIETLY. WILL MONITOR.
[2020-02-06 04:15] VITALS: BP 129/71
[2020-02-06 04:57] LABS: HEMATOCRIT 25.7 % (42.0-52.0); HEMOGLOBIN 8.9 gm/dL (14.0-18.0); MCH 31.2 pg (26.0-34.0); MCHC 34.7 g/dL (28.0-37.0); MCV 89.9 fL (80.0-100.0); RBC 2.86 mil/uL (4.50-6.00); RDW 15.3 % (10.5-14.5); WBC 9.6 thou/uL (4.0-11.0)
[2020-02-06 05:23] LABS: CREATININE 2.2 mg/dL (0.7-1.3); PHOSPHORUS 4.3 mg/dL (2.5-4.9)
[2020-02-06 08:00] VITALS: BP 122/63
[2020-02-06 11:20] VITALS: BP 120/65
[2020-02-06 16:00] VITALS: BP 103/63
--- NOTE | 2020-02-06 17:40 | NUR ---
ASSESSMENT CHARTED . MEDS PER MAR - NO CO'S OF P[AIN OR NAUSEA. COSME DIET AND FLUIDS. ACCUCHECKS CHARTED AND COVERED PER SSI. PT HAS BEEN UP N THE CHAIR FOR MOST OF THE DAY. MARCUS CONTINUES TO DRAIN BLOODY COLORED URINE. PT STATES THAT HE FEELS LIKE IS BLADDER IN EMPTY AND THAT MARCUS IS FUNCTIONING. PT APPEARS TO BE COMFORTABLE AT THE PRESENT TIME.
--- NOTE | 2020-02-06 19:04 | NUR ---
MONITOR NOTED TO HAVE PT IN TACHY RHYTM, CHECKED ON PATIENT HE STATED HE FELT A LITTLE "FUNNY" A FEW SECONDS AGO BUT WAS FINE NOW. PATIENT UP IN CHAIR PALCED BACK TO BED, RHYTM BACK IN SINUS. PT WITH NO CO'S.
[2020-02-06 20:00] VITALS: BP 124/62
[2020-02-07 04:20] VITALS: BP 145/68
[2020-02-07 05:10] LABS: ALBUMIN 3.1 g/dL (3.4-5.0); CALCIUM 9.1 mg/dL (8.5-10.1); CREATININE 2.2 mg/dL (0.7-1.3); PHOSPHORUS 4.6 mg/dL (2.5-4.9); POTASSIUM 4.1 mmol/L (3.5-5.1)
--- NOTE | 2020-02-07 05:15 | NUR ---
PATIENT ALERT AND ORIENTED X4. UP TO CHAIR AT SHIFT CHANGE. MARCUS TO D/D WITH OPAL URINE. BS MONITORED PER ORDER. DENIES PAIN. TELE NSR/TACHY. BM DURING AM SHIFT. UP WITH WALKER AND SBA. RESTING QUIETLY. WILL MONITOR.
[2020-02-07 07:55] VITALS: BP 124/69
[2020-02-07 08:14] LABS: HEMATOCRIT 26.2 % (42.0-52.0); HEMOGLOBIN 9.1 gm/dL (14.0-18.0); MCH 31.6 pg (26.0-34.0); MCHC 34.7 g/dL (28.0-37.0); RBC 2.87 mil/uL (4.50-6.00); RDW 15.1 % (10.5-14.5); WBC 8.9 thou/uL (4.0-11.0)
[2020-02-07 11:23] VITALS: BP 127/72
[2020-02-07 15:47] VITALS: BP 117/55
--- NOTE | 2020-02-07 16:25 | NUR ---
ASSESSMENT CHARTED - MEDS PER MAR - NO CO'S OF PAIN OR NAUSEA. COSME DIET AND FLUIDS. PT HAS SPENT THE DAY RESTING IN BED. ACCUCHECKS ORDERED COVERED PER SSI. PT WITH MARCUS AND URINE CONTINUING TO BLOODY URINE. PT STARTED ON CBI, CLOTS NOTICED WHEN STARTED AND NOW URINE IS LIGHT PINK/ YELLOW IN COLOUR. NO CO'S AT THE PRESENT TIME . APPEARS TO BE RESTING COMFORTABLY.
[2020-02-07 19:56] VITALS: BP 129/71
[2020-02-08 00:28] VITALS: BP 111/67
--- NOTE | 2020-02-08 00:43 | NUR ---
ASSUMED CARE OF PT FROM SAMANTA SHIFT, PT HAVE CBI , TOLERATING WELL WITH PINK TINGE URINE WITH MEDIUM FLOWS OF FLUIDS. DENIES PAIN , CARDIC MONITOR SHOWS NSR . UP TO BATHROOM THIS AM HAD LOOSE BROWN STOOL , PT RESTED WELL THROUHGOUT HOURLY ROUNDS, WILL CONITNUE WITH P[OC OF CARE.
[2020-02-08 04:52] LABS: HEMATOCRIT 26.7 % (42.0-52.0); HEMOGLOBIN 9.2 gm/dL (14.0-18.0); MCH 30.9 pg (26.0-34.0); MCHC 34.4 g/dL (28.0-37.0); MCV 89.7 fL (80.0-100.0); RBC 2.97 mil/uL (4.50-6.00); RDW 15.5 % (10.5-14.5); WBC 9.5 thou/uL (4.0-11.0)
[2020-02-08 04:54] VITALS: BP 125/62
[2020-02-08 05:02] LABS: ALBUMIN 3.1 g/dL (3.4-5.0); CALCIUM 9.7 mg/dL (8.5-10.1); CREATININE 2.2 mg/dL (0.7-1.3); PHOSPHORUS 4.5 mg/dL (2.5-4.9); POTASSIUM 4.3 mmol/L (3.5-5.1)
--- NOTE | 2020-02-08 08:15 | NUR ---
REC REPORT AT SHIFT CHANGE, CHECKED PT'S MARCUS FLOW, MEDIUM BLOOD TINGED, NO CLOTS, TWO LARGE BAGS HUNG WITH ONE SET ASIDE, WILL ASK FOR MDS MANAGER TO ORDER ANOTHER FOR DOUGHNUT ICER MACHINE. ENCOURAGED PT TO USE CALL LIGHT FOR ANY NEEDS. NO NEEDS OR CONCERNS AT THIS TIME. SEE SEPARATE INTERVENTIONS FOR ASSESSMENTS. WILL CONTINUE TO MONITOR
[2020-02-08 08:53] VITALS: BP 138/67
--- NOTE | 2020-02-08 10:34 | NUR ---
FAXED REFERRAL TO [facility] SPOKE WITH INTAKE THEY RECEIVED REFERRAL AND WILL REVIEW. DP TO FOLLOW.
[2020-02-08 12:19] VITALS: BP 121/70
[2020-02-08 17:20] VITALS: BP 119/69
[2020-02-08 20:01] VITALS: BP 145/59
--- NOTE | 2020-02-09 04:39 | NUR ---
ASSUMED PT CARE AROUND 1930. AXOX4. CIRCLE. ONGOING CBI. VSS. NO S/S ACUTE DISTRESS NOTED OR REPORTED AT THIS TIME. WILL CONT TO MONITOR ANY CHANGES IN CONDITION.
[2020-02-09 05:57] LABS: HEMATOCRIT 27.5 % (42.0-52.0); HEMOGLOBIN 9.4 gm/dL (14.0-18.0); MCHC 34.2 g/dL (28.0-37.0); MCV 90.6 fL (80.0-100.0); RBC 3.04 mil/uL (4.50-6.00); RDW 15.2 % (10.5-14.5); WBC 8.4 thou/uL (4.0-11.0)
[2020-02-09 06:19] LABS: CALCIUM 9.4 mg/dL (8.5-10.1); CREATININE 2.3 mg/dL (0.7-1.3); MAGNESIUM 1.8 mg/dL (1.8-2.4); POTASSIUM 4.3 mmol/L (3.5-5.1)
--- NOTE | 2020-02-09 07:50 | NUR ---
ASSUMED CARE OF PT AT SHIFT CHANGE, IN GOOD SPIRITS, CONCERNED ABOUT COLOR OF URINE THROUGHOUT THE NIGHT. NEPHROLOGY CAME BY AND SAID TO CLAMP AFTER BEING GIVEN A BRIEF REPORT. SAID TO SEE HOW THE PT DOES AND GAVE HIS PHONE NUMBER FOR REFERENCE. CREATININE HAS NOT IMPROVED. SEE SEPARATE INTERVENTIONS FOR ASSSESSMENTS. WILL CONTINUE TO MONITOR
[2020-02-09] MEDS ORDERED: BRILINTA90 MG PO (08:22)
[2020-02-09] MEDS ORDERED: NORVASC5 MG PO (08:22)
[2020-02-09] MEDS ORDERED: IMDUR 30 MG TAB30 M1 PO (08:23)
--- NOTE | 2020-02-09 11:23 | NUR ---
Patient working with therapy progressing toward dc. Plan home with [facility] [place].
[2020-02-09 12:33] VITALS: BP 118/68
--- NOTE | 2020-02-09 15:40 | NUR ---
Nutrition: Pt seen for LOS. Admit with CP, NSTEMI, S/P stent. PMH: CAD, CABG, HTN, HLD, DM2, NSTEMI. Pt eating 75-100% of meals on heart healthy diet. BG 131-216. Will add carb controlled to diet order. Pt reports 8-10# weight loss over the past year-not significant. BMI remains 30, obesity class 1. Geriatric ASSEMBLY OPERATOR has indicated + sarc score with decreased breastfeeding peer counselor strength. Will add ensure max daily. Pt agrees. RD provided handout related to heart healthy diet and briefly reviewed. pt agrees to read through materials. Consider low risk.
--- NOTE | 2020-02-09 16:46 | NUR ---
DR. BARBOUR, NEPHROLOGY, AWARE OF SLIGHT COLOR CHANGE OF URINE WITH PT OFF CBI. NURSING TO RESTART CBI (IN CLAMPED STATE PER HIS ORDER AT THIS TIME). HE STATES TO RESTART CBI SHOULD URINE BE RED OR HAVE CLOTS. ALSO OFFERS HIS PHONE NUMBER SHOULD FOLLOWING SHIFTS HAVE QUESTIONS. [phone]
[2020-02-09 16:52] VITALS: BP 127/68
--- NOTE | 2020-02-09 19:24 | NUR ---
GIVING REPORT TO NIGHT NURSE, DISCOVERED NIGHT NURSE HAD ALREADY RESTARTED CBI. PT'S URINE WAS TEA COLORED WITH MINISCULE CLOT. DR. BARBOUR ASKED FOR CBI TO ONLY BE RESTARTED SHOULD URINE BY RED. GAVE HIM FYI AND UNIT NUMBER. ALSO SPOKE WITH PT.
[2020-02-09 20:09] VITALS: BP 132/68
[2020-02-10 05:49] VITALS: BP 112/70
[2020-02-10 06:14] LABS: HEMATOCRIT 27.4 % (42.0-52.0); HEMOGLOBIN 9.4 gm/dL (14.0-18.0); MCH 30.8 pg (26.0-34.0); MCHC 34.2 g/dL (28.0-37.0); MCV 89.9 fL (80.0-100.0); RBC 3.04 mil/uL (4.50-6.00); RDW 15.3 % (10.5-14.5); WBC 8.9 thou/uL (4.0-11.0)
[2020-02-10 06:28] LABS: ALBUMIN 3.1 g/dL (3.4-5.0); CALCIUM 9.5 mg/dL (8.5-10.1); CREATININE 2.4 mg/dL (0.7-1.3); MAGNESIUM 1.8 mg/dL (1.8-2.4); PHOSPHORUS 4.8 mg/dL (2.5-4.9); POTASSIUM 4.3 mmol/L (3.5-5.1)
--- NOTE | 2020-02-10 07:18 | NUR ---
PATIENT IS PROGRESSING SLOWLY IN HIS CARE PLAN. VITAL SIGNS STABLE WITH PATIENT HAVING NO COMPLAINTS OF PAIN OR NAUSEA. FULLY ORIENTED, PATIENT IS ABLE TO CALL APPROPRIATELY FOR NEEDS AND PARTICIPATE IN CARE. UPON INITIAL ASSESSMENT NURSE NOTED TEA COLORED URINE WITH CLOTS PRESENT IN MARCUS CATHETER. CONTINUOUS BLADDER IRRIGATION RESUMED TO GOOD EFFECT. UP MULTIPLE TIMES WITH ASSISTANCE INCIDENT FREE, PATIENT IS A HIGH FALL RISK. POSSIBLE DISCHARGE SOON. CONTINUE PLAN OF CARE.
[2020-02-10 07:41] VITALS: BP 122/66
--- NOTE | 2020-02-10 08:17 | NUR ---
ASSUMED CARE OF PT AT SHIFT CHANGE, CBI STARTED UPON NIGHT SHIFTS ASSUMING CARE. PT'S URINE NOW DARK PINK/OPAL, NO CLOTS. COMM W/TEMP RECRUITER TO GIVE FYI. PT CONSIDERED D/C PENDING NEPHROLOGY. PT STATES HE SLEPT WELL, AMB W/CANE AND STEADY GAIT. MONITORING GTT AND URINE COMING FROM SITE MORE THAN COLLECTION IN BAG. ENCOURAGE DPT TO USE CALL LIGHT FOR ANY NEEDS. HIS RIDE IS IN DIALYSIS , , AND SATURDAY SO IS ABLE TO TELETRAY OPERATOR TODAY SHOULD HE D/C. SEE SEPARATE INTERVENTIONS FOR ASSESSMENTS.
[2020-02-10 11:31] VITALS: BP 112/64
[2020-02-10 15:22] VITALS: BP 133/73
--- NOTE | 2020-02-10 18:27 | NUR ---
AGAIN DR BARBOUR ASKED IF NIGHT STAFF, OR OTHER, HAVE ANY QUESTIONS PLEASE FEEL FREE TO CALL/TEXT (NEPHROLOGY)
[2020-02-10 19:50] VITALS: BP 166/79
[2020-02-11 04:00] VITALS: BP 131/75
[2020-02-11 06:16] LABS: HEMATOCRIT 27.4 % (42.0-52.0); HEMOGLOBIN 9.7 gm/dL (14.0-18.0); MCH 31.6 pg (26.0-34.0); MCHC 35.4 g/dL (28.0-37.0); MCV 89.2 fL (80.0-100.0); RBC 3.08 mil/uL (4.50-6.00); RDW 15.1 % (10.5-14.5); WBC 9.8 thou/uL (4.0-11.0)
[2020-02-11 06:54] LABS: CALCIUM 9.6 mg/dL (8.5-10.1); CREATININE 2.2 mg/dL (0.7-1.3); MAGNESIUM 1.9 mg/dL (1.8-2.4); POTASSIUM 4.2 mmol/L (3.5-5.1)
[2020-02-11 07:27] VITALS: BP 133/76
[2020-02-11 11:13] VITALS: BP 120/63
--- NOTE | 2020-02-11 11:35 | NUR ---
RECEIVED PT'S CARE AROUND 0720; PT. ON BED; ALERT; DURING AM ASSESSMENT PT. A0X4; NO C/O PAIN; AM MEDICATIONS GIVEN; ST. HE IS SUPPOSED TO BE D/C TODAY; 02/11/2020; EDUCATED ABOUT D/C PROCESS & PHYSICIAN BEBETO ABREU; ADEQUATE URINARY OUTPUT IN MARCUS; BROWN DARK COLOR; PER GLASS SETTER PT. IS OK TO BE D/C; PHYSICIAN NOTIFIED DURING ROUNDING; SR ON THE MONITOR; ASSESSMENT CHARGED; FOLLOWING POC; MONITORING;
[2020-02-11 14:24] VITALS: BP 131/60
--- NOTE | 2020-02-11 15:37 | NUR ---
PT DISCHARGING TODAY TO HOME WITH [facility] FAXED DC ORDERS/SUMMARY SPOKE WITH KALYN SHE RECEIVED ORDERS AND WILL NOTIFY PT TIME OF VISITS.
== END 2020-02-11 14:46 | disposition home health service (06) | DRG 246 ==
LOC: ER 15:53 → 2N 20:09 → EROBS 20:09 → 2N 21:01
PROVIDERS: Hospitalist; Internal Medicine Cardiovascular Disease; Internal Medicine Nephrology; Nurse Practitioner; Nurse Practitioner Family; Physician Assistant; ADMIT Internal Medicine; ATTEND Internal Medicine
DX: I21.4 Non-ST elevation (NSTEMI) myocardial infarction (principal); N17.0 Acute kidney failure with tubular necrosis; I25.119 Atherosclerotic heart disease of native coronary artery with unspecified angina pectoris; E78.5 Hyperlipidemia, unspecified; Z20.828 Contact with and (suspected) exposure to other viral communicable diseases; M19.90 Unspecified osteoarthritis, unspecified site; I25.10 Atherosclerotic heart disease of native coronary artery without angina pectoris; E11.22 Type 2 diabetes mellitus with diabetic chronic kidney disease; N18.3 Chronic kidney disease, stage 3 (moderate); M62.84 Sarcopenia; R63.4 Abnormal weight loss; G47.00 Insomnia, unspecified; R31.9 Hematuria, unspecified; N40.1 Benign prostatic hyperplasia with lower urinary tract symptoms; R33.8 Other retention of urine; I12.9 Hypertensive chronic kidney disease with stage 1 through stage 4 chronic kidney disease, or unspecified chronic kidney disease; Z79.82 Long term (current) use of aspirin; Z95.1 Presence of aortocoronary bypass graft; Z86.010 Personal history of colon polyps; Z82.49 Family history of ischemic heart disease and other diseases of the circulatory system; Z79.899 Other long term (current) drug therapy; Z90.49 Acquired absence of other specified parts of digestive tract; Z68.31 Body mass index [BMI] 31.0-31.9, adult
CPT/HCPCS: 10081; 56815; 57160

== ENCOUNTER → 2020-02-18 | Outpatient (CLI) | payer OTHER ==
[~2020-02-18] MED LIST changes: +BRILINTA90 MG PO; +IMDUR 30 MG TAB30 M1 PO; +NORVASC5 MG PO
== END ==
LOC: SJCVC 14:58
PROVIDERS: ATTEND Internal Medicine Cardiovascular Disease
DX: I25.10 Atherosclerotic heart disease of native coronary artery without angina pectoris (principal); R94.31 Abnormal electrocardiogram [ECG] [EKG]; I45.10 Unspecified right bundle-branch block; I10 Essential (primary) hypertension; R60.9 Edema, unspecified; E78.00 Pure hypercholesterolemia, unspecified; I25.2 Old myocardial infarction; Z95.1 Presence of aortocoronary bypass graft; Z79.899 Other long term (current) drug therapy

== ENCOUNTER → 2020-05-30 | Outpatient (CLI) | payer OTHER | LOC: SJCVC 13:50 | PROVIDERS: ATTEND Internal Medicine Cardiovascular Disease | DX: R94.31 Abnormal electrocardiogram [ECG] [EKG] (principal); I45.10 Unspecified right bundle-branch block; I25.10 Atherosclerotic heart disease of native coronary artery without angina pectoris; I10 Essential (primary) hypertension; R60.9 Edema, unspecified; E78.00 Pure hypercholesterolemia, unspecified; N28.9 Disorder of kidney and ureter, unspecified; I25.2 Old myocardial infarction; Z95.1 Presence of aortocoronary bypass graft; Z79.82 Long term (current) use of aspirin; Z79.899 Other long term (current) drug therapy ==

== ENCOUNTER → 2020-09-26 | Outpatient (CLI) | payer OTHER | LOC: SJCVC 10:02 | PROVIDERS: ATTEND Internal Medicine Cardiovascular Disease | DX: R94.31 Abnormal electrocardiogram [ECG] [EKG] (principal); I25.10 Atherosclerotic heart disease of native coronary artery without angina pectoris; R60.9 Edema, unspecified; E78.00 Pure hypercholesterolemia, unspecified; I12.9 Hypertensive chronic kidney disease with stage 1 through stage 4 chronic kidney disease, or unspecified chronic kidney disease; N18.9 Chronic kidney disease, unspecified; E11.22 Type 2 diabetes mellitus with diabetic chronic kidney disease; E78.5 Hyperlipidemia, unspecified; M19.90 Unspecified osteoarthritis, unspecified site; I45.10 Unspecified right bundle-branch block; Z95.1 Presence of aortocoronary bypass graft; Z79.899 Other long term (current) drug therapy ==

== ENCOUNTER → 2020-10-05 | Outpatient (CLI) | payer OTHER | LOC: SJCVCIMAG 07:18 | PROVIDERS: ATTEND Internal Medicine Cardiovascular Disease | DX: I25.10 Atherosclerotic heart disease of native coronary artery without angina pectoris (principal); I49.3 Ventricular premature depolarization; R60.9 Edema, unspecified; E78.00 Pure hypercholesterolemia, unspecified; N40.0 Benign prostatic hyperplasia without lower urinary tract symptoms; E11.22 Type 2 diabetes mellitus with diabetic chronic kidney disease; I12.9 Hypertensive chronic kidney disease with stage 1 through stage 4 chronic kidney disease, or unspecified chronic kidney disease; N18.9 Chronic kidney disease, unspecified; E78.5 Hyperlipidemia, unspecified; I25.2 Old myocardial infarction; M19.90 Unspecified osteoarthritis, unspecified site; Z95.1 Presence of aortocoronary bypass graft; Z98.61 Coronary angioplasty status; Z79.82 Long term (current) use of aspirin; Z79.899 Other long term (current) drug therapy; Z82.49 Family history of ischemic heart disease and other diseases of the circulatory system ==

== ENCOUNTER → 2020-10-10 | Outpatient (CLI) | payer OTHER ==
[~2020-10-10] VITALS: Ht 188 cm; Wt 117.9 kg
[2020-10-10 08:39] VITALS: BP 134/69
[2020-10-10 08:54] LABS: HEMATOCRIT 40.6 % (42.0-52.0); HEMOGLOBIN 13.8 gm/dL (14.0-18.0); MCH 32.2 pg (26.0-34.0); MCHC 33.9 g/dL (28.0-37.0); RBC 4.27 mil/uL (4.50-6.00); RDW 13.4 % (10.5-14.5); WBC 7.5 thou/uL (4.0-11.0)
[2020-10-10 09:00] LABS: CALCIUM 9.9 mg/dL (8.5-10.1); POTASSIUM 4.2 mmol/L (3.5-5.1)
--- NOTE | 2020-10-11 06:57 | EKG ---
[place] [address] [facility] [place] [address] [address] ELECTROCARDIOGRAM REPORT Name: MAURISIO COTO Room #: REG [facility]#: [id number] Admission: 10/10/20 Attend Phys: Blair Evans MD Discharge: Date of : 41 Report #: [id number] [facility] Test Date: 2020-10-10 Test Time: 09:10:08 Pat Name: MAURISIO COTO Department: Room: Gender: M Malted Milk Supervisor: SONNY : 1945 Requested By: Blair Evans Order Number: [id number] MD: Chaparro Tinoco Measurements Intervals Barnard Rate: 65 P: 56 CT: 203 QRS: 10 QRSD: 113 T: 155 QT: 423 QTc: 440 Interpretive Statements Sinus rhythm Probable left atrial enlargement Borderline intraventricular conduction delay Repol abnrm suggests ischemia, anterolateral Compared to ECG 02/05/2020 07:11:21 Early repolarization now present T-wave abnormality no longer present Possible ischemia still present Electronically Signed On 10-11-2020 6:57:16 CDT by Chaparro Tinoco [email or web address] <ELECTRONICALLY SIGNED> By: Chaparro Tinoco MD, [facility] 10/11/20 0657 0910 Chaparro Tinoco MD, [facility] /EPI
--- NOTE | 2020-10-11 09:52 | CATHLAB ---
[facility] [place] [address] INVASIVE PROCEDURE REPORT Name: MAURISIO COTO Room #: REG [facility]#: [id number] Admission: 10/10/20 Attend Phys: Blair Evans MD Discharge: Date of : 41 Report #: [id number] THIS REPORT FOR: cc: Killian Miranda MD, Michael D. MD Park, Jin S. MD ~ APPROVED REPORT Study performed: 10/10/2020 11:05:52 Patient Details Patient Status: Out-Patient Room #: The patient is a 75 year-old male Event Personnel Blair Evans Garment Form Assembler, Shakila Jensen RN RN, Arun Holm RN RN, Harmony Hudson RTR Kenan Stevenson Sherra RTR Monitor Procedures Performed Art Access - R femoral artery* Left Heart Cath Coronaries, Bypass Grafts 1474185 LHCCORCABG 74509 Initial Mod Sed Same Phys/QHP Gr5y 006041 97727 Mod Sed Same Phys/QHP Ea 773902 Hemostasis with Manual pressure Indication Dyspnea, Positive stress test Risk Factors Hypercholesterolemia, Coronary Artery DiseaseHypertension, Chronic renal insufficiency. Previous Procedures/Diagnoses Previous CABGPrevious PCI Procedure Narrative The Right Groin^ was infiltrated with 1% Lidocaine subcutaneous anesthesia. A PINNACLE 4FR Sheath #[id number] sheath was inserted into the . Coronary angiography was performed using coronary diagnostic catheters. The right coronary system was accessed and visualized with a JR4 catheter. The left coronary system was accessed and visualized with a JL5 catheter. The left ventricle was accessed and visualized with a JR4 catheter. Hemostasis was obtained with manual pressure following sheath removal without any complications. The patient [facility] [address] [place] [address] INVASIVE PROCEDURE REPORT Name: MAURISIO COTO Room #: REG [facility]#: [id number] Admission: 10/10/20 Attend Phys: Blair Evans MD Discharge: Date of : 41 Report #: [id number] tolerated the procedure well and there were no complications associated with the procedure. There was no hematoma. Intraoperative Conscious Sedation Sedation start time: 12:39 Case end Time: 13:22 Fentanyl 50 mcg Versed 1 mg Fluoro Time: 8.20 minutes Dose: DAP 47484.60 cGycm2 1686 mGy Contrast Type and Amount: Visipaque 45 ml Coronary Angiography The patient's coronary anatomy is right dominant. [place] Artery Percent Stenosis Left Main: % Prox LAD: 70 % Mid/Distal LAD: % Circumflex: 30 % RCA: 10 % Ramus: % Diagnostic Cath LAD There is a SRIVASTAVA graft with an end-to-side anastomosis to the mid segment of the LAD. At the distal anastomosis, there is a severe occlusion of 70%. This is unchanged from prior procedures. Diagonal 1 There is a patent Y graft off the SRIVASTAVA conduit, with an end-to-side anastomosis to the first diagonal artery. This conduit is patent with no flow-limiting lesions. Circumflex There is a patent stent in the mid segment of the left circumflex artery, supplying blood to the distal marginals. OM1 This vessel is occluded at the ostium. There is a free radial artery graft with a severe restenotic lesion at the distal anastomosis to OM1. Recommend PCI. Right Coronary The RCA is a dominant vessel with minimal disease proximally. R PDA This is a patent vessel with no flow-limiting lesions. RPLV This is a small to moderate-sized caliber vessel, with no flow-limiting lesions. Left Ventriculography Left Ventriculography was not performed. Ejection Fraction was >55% based off patient's Nuclear Cardiac Stress Test. An LVEDP was measured and there is no gradient across the outflow tract. Hemodynamics The aortic pressure is 113/51 mmHg with a mean of 75 mmHg. The left [facility] [address] [place] [address] INVASIVE PROCEDURE REPORT Name: MAURISIO COTO Room #: REG [facility]#: [id number] Admission: 10/10/20 Attend Phys: Blair Evans MD Discharge: Date of : 41 Report #: [id number] ventricular pressure is 127/8 mmHg with a mean of mmHg. The left ventricular end diastolic pressure is 17 mmHg. Conclusion 1. There is a severe restenotic lesion at the distal anastomosis of the free radial artery graft to OM1. Recommend staged PCI. 2. There is a severe stenosis at the distal anastomosis of the SRIVASTAVA to the mid LAD segment, unchanged from prior procedures. Recommend medical therapy. 3. There is a patent Y graft off the SRIVASTAVA graft to the first diagonal artery. 4. There is a patent stent in the mid segment of the left circumflex artery. 5. [place] RCA is patent with no flow-limiting lesions. 6. Minimal contrast used for diagnostic catheterization. <ELECTRONICALLY SIGNED> By: Blair Evans MD 10/11/2052 1 1 Blair Evans MD /INF
== END | disposition home or self-care (01) ==
LOC: CATH 07:32
PROVIDERS: ATTEND Internal Medicine Cardiovascular Disease
DX: R94.39 Abnormal result of other cardiovascular function study (principal); R06.00 Dyspnea, unspecified; I25.810 Atherosclerosis of coronary artery bypass graft(s) without angina pectoris; I12.9 Hypertensive chronic kidney disease with stage 1 through stage 4 chronic kidney disease, or unspecified chronic kidney disease; E11.22 Type 2 diabetes mellitus with diabetic chronic kidney disease; N18.9 Chronic kidney disease, unspecified; N40.0 Benign prostatic hyperplasia without lower urinary tract symptoms; M19.90 Unspecified osteoarthritis, unspecified site; E78.5 Hyperlipidemia, unspecified; E78.00 Pure hypercholesterolemia, unspecified; Z98.890 Other specified postprocedural states; Z79.899 Other long term (current) drug therapy; Z95.1 Presence of aortocoronary bypass graft

== ENCOUNTER 2020-10-17 07:27 | Observation (INO) | payer OTHER ==
[2020-10-17] VITALS (9 sets, daily range): BP systolic 128–163; BP diastolic 55–80
[~2020-10-17] VITALS: Ht 190.5 cm; Wt 120.2 kg
[2020-10-17 08:24] LABS: HEMOGLOBIN 13.5 gm/dL (14.0-18.0); MCH 32.9 pg (26.0-34.0); MCHC 34.6 g/dL (28.0-37.0); MCV 94.9 fL (80.0-100.0); RBC 4.11 mil/uL (4.50-6.00); RDW 13.3 % (10.5-14.5); WBC 7.5 thou/uL (4.0-11.0)
[2020-10-17 08:32] LABS: CREATININE 1.9 mg/dL (0.7-1.3)
--- NOTE | 2020-10-17 16:01 | CATHLAB ---
[facility] [place] [address] INVASIVE PROCEDURE REPORT Name: MAURISIO COTO Room #: 200-I [facility] Snehal MKatharineRKatharine#: [id number] Admission: 10/17/20 Attend Phys: Blair Evans MD Discharge: Date of : 41 Report #: [id number] THIS REPORT FOR: cc: Killian Miranda MD, Michael D. MD Park, Jin S. MD ~ APPROVED REPORT Study performed: 10/17/2020 11:56:36 Patient Details Patient Status: Out-Patient Room #: The patient is a 75 year-old male Event Personnel Blair Evans [employer] Crew Member, Mel Rose RN RN, Lacy Carlos RT(R)() Kenan Stevenson Sherra RTR Monitor, Lazaro Jean RTR Rodbuster Procedures Performed Art Access - R femoral artery* MADELINE Revasc Graft Single LAD C9604 SVGREVSING 36406 Initial Mod Sed Same Phys/QHP Gr5y 841099 10348 Mod Sed Same Phys/QHP Ea 031659 Hemostasis w/ Mynx Indication Dyspnea, Positive stress test, The patient had a cardiac catheterization recently, found to have a severe restenotic lesion in the free radial graft distal anastomosis to OM1 and a severe occlusion in the distal anastomosis of the SRIVASTAVA graft to the mid LAD segment. He presents today for staged PCI. Angioplasty was not performed during the initial diagnostic procedure due to elevated creatinine level. Risk Factors Hypercholesterolemia, Coronary Artery DiseaseHypertension Previous Procedures/Diagnoses Previous CABGPrevious PCI Procedure Narrative The Right Groin^ was infiltrated with 1% Lidocaine subcutaneous anesthesia. A PINNACLE 6FR Sheath #[id number] sheath was inserted into the RFA^. Coronary angiography was performed using coronary diagnostic catheters. Pre-demployment femoral angiogram was performed [facility] [place] [address] INVASIVE PROCEDURE REPORT Name: MAURISIO COTO Room #: 200-I [facility] IN [facility].#: [id number] Admission: 10/17/20 Attend Phys: Blair Evans MD Discharge: Date of : 41 Report #: [id number] . Closure device was deployed with a 6 Fr MYNXGRIP 6/7F #[id number]. The patient tolerated the procedure well and there were no complications associated with the procedure. There was no hematoma. Intraoperative Conscious Sedation Sedation start time: 1220 Case end Time: 1343 Fentanyl 100 mcg Versed 1.5 mg .5 Fluoro Time: 20.42 minutes Dose: DAP 80456.00 cGycm2 1911 mGy Contrast Type and Amount: Visipaque 225 ml Coronary Angiography The patient's coronary anatomy is right dominant. Hemodynamics The aortic pressure is 146/60 mmHg with a mean of 95 mmHg. PCI Technique Lesion Percutaneous coronary intervention was performed on the Distal anastomotic site of the free radial graft to OM1. The lesion stenosis prior to intervention was 99% with GORGE 2 flow. COMMENTS Unsuccessful PCI due to inability to cross the restenotic lesion with a wire. The distal OM1 vessel is filled via collateral circulation. Recommend medical therapy. PCI Technique Lesion 2 Percutaneous Coronary Intervention was performed on the distal anastomotic site of the SRIVASTAVA graft to mid LAD segment. The lesion stenosis prior to intervention was 80% with GORGE 3 flow. A VISTA 6FR IM #[id number] Guide Catheter was used to engage the ostium. A Luge Wire .014 x 182CM #[id number] Interventional Guidewire was used to cross the lesion. Balloon Dilation A Balloon catheter MINI TREK RX 2.0 X 15 #[id number] was inserted and inflated up to 10atm for 15seconds. Additional Inflation: 10atm for 13seconds. Stent Deployment A drug-eluting stent RESOLUTE RAYO RX 2.5 X 15 #[id number] was inserted [address] [address] INVASIVE PROCEDURE REPORT Name: MAURISIO COTO Room #: 200-I [facility] IN [facility]#: [id number] Admission: 10/17/20 Attend Phys: Blair Evans MD Discharge: Date of : 41 Report #: [id number] and inflated up to 16atm for 21seconds. Post Stent Deployment Balloon Dilation A Balloon catheter Euphora NC RX 2.5 x 12 #[id number] was inserted and inflated up to 18atm for 17seconds. Additional Inflation: 8atm for 3seconds. Additional Inflation: 18atm for 11seconds. Final angiography reveals 0 % stenosis with GORGE 3 flow. Conclusion 1. Successful insertion of a drug-eluting stent to the distal anastomotic site of the SRIVASTAVA graft to the mid LAD segment. 2. Unsuccessful PCI due to inability to cross the restenotic lesion at the distal anastomosis of the free radial graft to OM1 with a wire. The distal OM1 is filled via collateral circulation. Recommend medical therapy. 3. Recommend dual antiplatelet therapy and aggressive risk factor management. <ELECTRONICALLY SIGNED> By: Blair Evans MD 10/17/20 160 00 00 Blair Evans MD /INF
--- NOTE | 2020-10-17 17:59 | NUR ---
PT. ARRIVED AT FLOOR AFTER 1500; PT. AOX4; NO C/O PAIN; R. GROIN SIDE INTACT; NO HEMATOMA NOTICED; EDUCATED ABOUT BED REST UNTIL 1740; [facility]; EDUCATED ABOUT HOLDING PRESSURE IF COUGHING; [facility]; EDUCATED ABOUT CALLING IMMEDIATELY IF NOTICED SWELLING, BLEEDING OR INCREASE PAIN; [facility]; EDUCATED ABOUT USING THE URINAL AND FALL PRECAUTIONS AFTER BED REST; [facility]; SB ON THE MONITOR; NO HEMATOMA THROUGH THE AFTERNOON; ADMISSION PERFORMED; ASSESSMENT CHARGED; FOLLOWING POC; WILL PASS ON REPORT;
[2020-10-18 01:25] VITALS: BP 142/64
--- NOTE | 2020-10-18 04:33 | NUR ---
ASSUMED PT CARE AT CHANGE OF SHIFT, ALERT AND ORIENTEDX4, SR ON THE MONITOR, DENIES CHEST PAIN OR SOB, R.GROIN SITE CDI, NO HEMATOMA, BP ELEVATED IN THE 160S SYSTOLIC, PROVIDER NOTIFIED, ORDERS RECEIVED AND IMPLEMENTED, BP BACK TO 140S SYSTOLIC, DENIES CONCERNS AT THIS TIME, WILL CONTINUE TO MONITOR AND FOLLOW POC
[2020-10-18 04:43] VITALS: BP 143/64
[2020-10-18 05:03] LABS: HEMATOCRIT 40.3 % (42.0-52.0); HEMOGLOBIN 13.6 gm/dL (14.0-18.0); MCH 32.1 pg (26.0-34.0); MCHC 33.8 g/dL (28.0-37.0); MCV 94.9 fL (80.0-100.0); RBC 4.24 mil/uL (4.50-6.00); RDW 13.1 % (10.5-14.5); WBC 8.8 thou/uL (4.0-11.0)
[2020-10-18 05:24] LABS: ALBUMIN 3.5 g/dL (3.4-5.0); CALCIUM 8.5 mg/dL (8.5-10.1); CREATININE 1.6 mg/dL (0.7-1.3); POTASSIUM 3.7 mmol/L (3.5-5.1); TOTAL BILIRUBIN 1.1 mg/dL (0.2-1.0); TOTAL PROTEIN 6.9 g/dL (6.4-8.2)
[2020-10-18 08:22] VITALS: BP 143/81
[2020-10-18] MEDS ORDERED: BAYER CHEWABLE81 MG PO (08:53)
--- NOTE | 2020-10-18 09:38 | EKG ---
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 : 1945 Requested By: Blair Evans Order Number: [id number] MD: Alvaro Carbajal Measurements Intervals [place] Rate: 59 P: 56 NM: 228 QRS: -2 QRSD: 124 T: 148 QT: 471 QTc: 467 Interpretive Statements Sinus rhythm Prolonged NM interval Nonspecific intraventricular conduction delay T wave abnormality, consider lateral ischemia versus strain Compared to ECG 10/10/2020 09:10:08 No significant change was found Electronically Signed On 10-18-2020 9:38:11 CDT by Alvaro Carbajal [email or web address] <ELECTRONICALLY SIGNED> By: Alvaro Carbajal MD, [facility] [id number] 10 10 Alvaro Carbajal MD, [facility] /EPI
--- NOTE | 2020-10-18 09:42 | EKG ---
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 : 1945 Requested By: Blair Evans Order Number: [id number] MD: Alvaro Carbajal Measurements Intervals [place] Rate: 65 P: 57 RI: 205 QRS: 5 QRSD: 118 T: 137 QT: 438 QTc: 456 Interpretive Statements Sinus rhythm with first-degree AV block LVH with IVCD and secondary repol abnrm Compared to ECG 10/17/2020 19:11:14 Intraventricular conduction delay now present No significant change was found Electronically Signed On 10-18-2020 9:42:04 CDT by Alvaro Carbajal [email or web address] <ELECTRONICALLY SIGNED> By: Alvaro Carbajal MD, [facility] 0442 1 1 Alvaro Carbajal MD, [facility] /EPI
--- NOTE | 2020-10-18 10:36 | NUR ---
RECEIVED PT'S CARE AROUND 0725; PT. ON BED; ALERT; DURING AM ASSESSMENT PT. AOX4; NO C/O PAIN; AM MEDICATIONS GIVEN; EDUCATED ABOUT FALL PRECAUTIONS; [facility]; NOTIFIED ABOUT D/C ORDERS; [facility]; PER REBECCA HERCULES OK FOR PT. TO GO HOME; ASSESSMENT CHARGED; FOLLOWING POC; WILL WORK ON D/C PAPERS;
[2020-10-18 10:53] VITALS: BP 143/81
[2020-10-18 10:58] VITALS: BP 121/59
== END 2020-10-18 11:57 | disposition home or self-care (01) ==
LOC: CATH 07:27 → 2N 15:20
PROVIDERS: ADMIT Internal Medicine Cardiovascular Disease; ATTEND Internal Medicine Cardiovascular Disease
DX: I25.110 Atherosclerotic heart disease of native coronary artery with unstable angina pectoris (principal); I12.9 Hypertensive chronic kidney disease with stage 1 through stage 4 chronic kidney disease, or unspecified chronic kidney disease; E11.22 Type 2 diabetes mellitus with diabetic chronic kidney disease; N18.32 Chronic kidney disease, stage 3b; E78.5 Hyperlipidemia, unspecified; I25.2 Old myocardial infarction; N40.0 Benign prostatic hyperplasia without lower urinary tract symptoms; M19.90 Unspecified osteoarthritis, unspecified site; Z95.1 Presence of aortocoronary bypass graft; Z79.899 Other long term (current) drug therapy

== ENCOUNTER → 2020-11-01 | Outpatient (CLI) | payer OTHER ==
[~2020-11-01] MED LIST changes: +BAYER CHEWABLE81 MG PO
== END ==
LOC: SJCVC 13:16
PROVIDERS: ATTEND Internal Medicine Cardiovascular Disease
DX: I49.9 Cardiac arrhythmia, unspecified (principal); I45.10 Unspecified right bundle-branch block; R94.31 Abnormal electrocardiogram [ECG] [EKG]; I25.10 Atherosclerotic heart disease of native coronary artery without angina pectoris; R60.9 Edema, unspecified; E78.00 Pure hypercholesterolemia, unspecified; N40.0 Benign prostatic hyperplasia without lower urinary tract symptoms; E11.22 Type 2 diabetes mellitus with diabetic chronic kidney disease; I12.9 Hypertensive chronic kidney disease with stage 1 through stage 4 chronic kidney disease, or unspecified chronic kidney disease; N18.9 Chronic kidney disease, unspecified; M19.90 Unspecified osteoarthritis, unspecified site; I25.2 Old myocardial infarction; Z95.1 Presence of aortocoronary bypass graft; Z79.82 Long term (current) use of aspirin; Z79.899 Other long term (current) drug therapy

== ENCOUNTER → 2021-05-10 | Outpatient (CLI) | payer OTHER | LOC: SJCVC 11:29 | PROVIDERS: ATTEND Internal Medicine Cardiovascular Disease | DX: R94.31 Abnormal electrocardiogram [ECG] [EKG] (principal); I49.8 Other specified cardiac arrhythmias; I25.10 Atherosclerotic heart disease of native coronary artery without angina pectoris; I12.9 Hypertensive chronic kidney disease with stage 1 through stage 4 chronic kidney disease, or unspecified chronic kidney disease; N18.9 Chronic kidney disease, unspecified; R60.9 Edema, unspecified; E78.00 Pure hypercholesterolemia, unspecified; N28.9 Disorder of kidney and ureter, unspecified; E11.9 Type 2 diabetes mellitus without complications; E78.5 Hyperlipidemia, unspecified; Z95.1 Presence of aortocoronary bypass graft; Z82.49 Family history of ischemic heart disease and other diseases of the circulatory system; Z79.82 Long term (current) use of aspirin; Z79.899 Other long term (current) drug therapy ==